=== PATIENT | female | born 1950 | race Caucasian/White ===

== ENCOUNTER → 2020-04-23 09:51 | Outpatient (BNVA) | payer MEDICARE, SELFPAY | PROVIDERS: PCP Family Medicine; Visit Provider Urology | DX: Z13.89 Encounter for screening for other disorder (principal) | CPT/HCPCS: Q3014 ==

== ENCOUNTER → 2020-05-05 09:50 | Outpatient (BNVA) | payer MEDICARE, SELFPAY | PROVIDERS: PCP Family Medicine; Visit Provider Nurse Practitioner | DX: Z13.89 Encounter for screening for other disorder (principal) | CPT/HCPCS: 99212 ==

== ENCOUNTER 2020-06-01 07:57 | Day surgery (SDC) | payer MEDICARE, SELFPAY ==
[2020-06-01 08:41] VITALS: BP 143/70; PULSE 73; RESP 18; TEMP 36.2; O2SAT 98
--- NOTE | 2020-06-01 08:47 | W.PM.OPN ---
Operative Note Operative Note Date of Service: 06/01/20 Narrative: Pre-op diagnosis: Colon cancer screening Post-op diagnosis: other (Colon polyps, diverticulosis) Procedure: COLONOSCOPY TILL CECUM WITH BIOPSIES AND SNARE POLYPECTOMY Consent: Indications for the procedure and potential complications of bleeding, perforation, reaction to medications and missed diagnosis were discussed with the patient and informed consent was obtained. Instrument: Olympus PCF H 190 L variable stiffness pediatric colonoscope Monitoring: Vital signs and clinical assessment, intermittent blood pressure monitoring, continuous EKG monitoring, Pulse oximetry and Carbon Dioxide monitoring were done throughout the procedure. Colon withdrawl time was 19 minutes. Procedure: The patient was placed in the left lateral decubitis position and pre-procedure medications were administered. After a digital rectal examination of the ano-rectum, the video colonoscope was inserted into the rectum and advanced through the colon to the cecum. The colonoscope was slowly withdrawn in a retrograde panoramic fashion and the colon mucosa was carefully examined including a retroflexed view of the rectum. Findings and interventions are described below. Procedure Difficulty: Patient was placed in the supine position to navigate a narrow area in the sigmoid colon at 25 - 30 cms Findings: Terminal Ileum: Not evaluated Cecum: Normal Ascending Colon: A 4-5 mm sessile polyp removed with cold biopsy Transverse Colon: Normal Descending Colon: Moderate diverticulosis Sigmoid Colon: A 10-12 mm sessile polyp removed with a hot snare. A 5-6 mm sessile polyp removed with the cold biopsy. Severe diverticulosis with luminal narrowing at 25-30 cm. Rectum: Normal Ano-rectum: Hypertrophied anal papillae. Colon preparation: Good after copious irrigation Impression and Post Procedure Diagnosis: Colonoscopy Findings: Three small to medium sized polyps removed Moderate to severe diverticulosis seen in the left colon Plan: Await pathology results Patient has an appointment on 06/16/20 in the [facility] with Courtney Reyes NP . Repeat Colonoscopy interval based on path results - in 3-5 years if polyps are adenomatous and 10 years if polyps are hyperplastic. Above findings were reviewed with the patient and colon polyps and diverticulosis handouts were given in the discharge area Surgeon: Johnny Alba MD Anesthesia: MAC (Hanane Ramirez CRNA) Journeyman Mechanic: Jerson Frias Estimated blood loss (mL): 0 Pathology: other (A- ASCENDING COLON POLYP B- SIGMOID COLON POLYPS) Condition: stable Disposition: PACU
--- NOTE | 2020-06-01 08:47 | MHC.SHP ---
Pre-Procedural Eval Section A The patient is an INPATIENT: No Changes since office visit: Yes Patient answered all questions; No Cold of Flu in the past 2 weeks, No New Medical Problems and No Changes in Medication The History & Physical has been completed within 30 days and I have reviewed it.: Yes Section B Chief Complaint: Screening Allergies: Allergies Allergy/AdvReac Type Severity Reaction Status Date / Time No Known Allergies Allergy Mild NKA Unverified 05/05/20 09:40 Exam Surgical H&P Exam: Normal: Heart, Normal: Lungs, Normal: Extremities and Normal: Abdomen Plan Diagnosis/Plan: Unchanged I have reviewed the history and physical and performed a pertinent physical examination on my patient. No changes have occurred unless specified.
[2020-06-01 08:51] VITALS: BMI 40.0
[2020-06-01 08:54] VITALS: BP 143/70; PULSE 73; RESP 18; TEMP 36.2; O2SAT 98
--- NOTE | 2020-06-01 08:56 | P.CONAN_ITS ---
[facility] Active Problems Active Problems: All Active Problems (Updated 05/27/20 @ 14:11 by Kaitlin bosch) Urinary urgency (Acute) Overactive bladder (Acute) GERD (gastroesophageal reflux disease) (Acute) Low magnesium level (Acute) Diarrhea (Acute) Colon cancer screening (Acute) Past Medical History Medical History Abdominal hyperesthesia Asthma COPD (chronic obstructive pulmonary disease) Depression Diabetic neuropathy DM2 (diabetes mellitus, type 2) GERD (gastroesophageal reflux disease) History of kidney stones HTN (hypertension) Hypomagnesemia Iron deficiency anemia secondary to inadequate dietary iron intake Liver mass Osteoarthritis Osteopenia PAD (peripheral artery disease) Scoliosis of thoracolumbar spine Thalamic pain syndrome Urinary incontinence Varicose vein of leg Surgical History Surgical History History of angioplasty of peripheral vessel History of cholecystectomy History of laparoscopic appendectomy Hx of bilateral cataract extraction Hx of section Social History Social History Household Members: Children Alcohol intake: never Smoking Status: Never smoker Use of substances other than those prescribed or required for medical reasons: No Have you been hit, kicked, punched, or otherwise hurt by someone within the past year? If so, by whom?: No Advance Directives: No Advance Directives Information Provided: Yes Current occupational status: disabled Meds Allergies Allergy/AdvReac Type Severity Reaction Status Date / Time No Known Allergies Allergy Mild NKA Unverified 05/05/20 09:40 Home Medications Medication Instructions Recorded Confirmed Last Taken Type acetaminophen 500 mg tablet 0 mg PO 04/23/20 Unknown History aspirin 81 mg tablet,delayed 81 mg PO QAM 04/23/20 05/27/20 Unknown History release atorvastatin 40 mg tablet 40 mg PO BEDTIME 04/23/20 05/27/20 Unknown History blood sugar diagnostic #10 ea 04/23/20 Unknown History carvedilol 12.5 mg tablet 12.5 mg PO DAILY 04/23/20 05/27/20 Unknown History cyanocobalamin (vitamin B-12) 1,000 mcg PO DAILY 04/23/20 05/27/20 Unknown History 1,000 mcg tablet ferrous sulfate 325 mg (65 mg 325 mg PO BID 04/23/20 05/27/20 Unknown History iron) tablet fluticasone propionate 220 1 puff PO BID 04/23/20 05/27/20 Unknown History mcg/actuation HFA aerosol inhaler glipizide 2.5 mg tablet, extended 2.5 mg PO DAILY 04/23/20 05/27/20 Unknown History release 24 hr lancets 33 gauge #100 ea 04/23/20 Unknown History lisinopril 10 mg tablet 10 mg PO QAM 04/23/20 05/27/20 Unknown History magnesium oxide 400 mg (241.3 mg 800 mg PO QID 04/23/20 05/27/20 Unknown History magnesium) tablet memantine 10 mg tablet 10 mg PO BID 04/23/20 05/27/20 Unknown History metformin 850 mg tablet 850 mg PO BID 04/23/20 05/27/20 Unknown History multivitamin 1 tab PO BEDTIME 04/23/20 05/27/20 Unknown History albuterol sulfate 2 puff PO Q4-6H PRN 05/27/20 05/27/20 Unknown History Exam Exam Date and Time: June 01, 2020 0856 Height,Weight and Vital Signs: Height 4 ft 5 in Weight 72.575 kg Last Vital Signs Temp 97.2 F 06/01/20 08:54 Pulse 73 06/01/20 08:54 Resp 18 06/01/20 08:54 BP 143/70 H 06/01/20 08:54 Pulse Ox 98 06/01/20 08:54 Airway Mallampati Class: II (Edentulous) TM Dist: >3cm Neck ROM: Full Denture: Upper and Lower Loose/Missing/Broken Teeth: Yes, Upper and Lower Assessment and Plan Assessment Anesthesia Assessment: Anesthesia Plan Discussed and Chart Reviewed Final Anesthetic Review NPO: Yes ASA Class: III Final Preanesthetic Review: Meds/Allgs Chart Reviewed, Consent Obtained/Reviewed and Anes Risks/Benef Reviewed Patient Risk: Intermediate Procedure Risk: Low Anesthetic Plan Anesthetic Plan: MAC: Disposition: Standard PACU
[2020-06-01 09:04] LABS: Glucose, Whole Blood 105 mg/dL (60-115)
[2020-06-01] MEDS: Lactated Ringers 1,000 ML 50 ML IV (09:12)
[2020-06-01 10:00] VITALS: BP 133/68; PULSE 88; RESP 16; TEMP 36.2; O2SAT 98
[2020-06-01 10:15] VITALS: BP 138/78; PULSE 79; RESP 18; O2SAT 99
== END 2020-06-01 10:50 | disposition home or self-care (01) ==
PROVIDERS: Visit Provider Internal Medicine Gastroenterology
PROC: 0DJD8ZZ Inspection of Lower Intestinal Tract, Via Natural or Artificial Opening Endoscopic (ICD-10-PCS; CPT 45378; principal; 2020-06-01 09:00)
DX: Z12.11 Encounter for screening for malignant neoplasm of colon (principal); D12.5 Benign neoplasm of sigmoid colon; K63.5 Polyp of colon; K57.30 Diverticulosis of large intestine without perforation or abscess without bleeding; K62.89 Other specified diseases of anus and rectum; K21.9 Gastro-esophageal reflux disease without esophagitis; R19.7 Diarrhea, unspecified; D50.9 Iron deficiency anemia, unspecified; R16.0 Hepatomegaly, not elsewhere classified; G89.0 Central pain syndrome; I10 Essential (primary) hypertension; E11.40 Type 2 diabetes mellitus with diabetic neuropathy, unspecified; R79.0 Abnormal level of blood mineral; R32 Unspecified urinary incontinence; Z79.84 Long term (current) use of oral hypoglycemic drugs; Z90.49 Acquired absence of other specified parts of digestive tract; Z79.51 Long term (current) use of inhaled steroids; Z79.82 Long term (current) use of aspirin; Z79.899 Other long term (current) drug therapy; Z87.891 Personal history of nicotine dependence
CPT/HCPCS: 45385; 45380; 82947; 88305

== ENCOUNTER → 2020-06-25 14:37 | Outpatient (BNVA) | payer MEDICARE, SELFPAY | PROVIDERS: Visit Provider Nurse Practitioner | DX: D12.6 Benign neoplasm of colon, unspecified (principal); K21.9 Gastro-esophageal reflux disease without esophagitis; R19.7 Diarrhea, unspecified | CPT/HCPCS: Q3014 ==

== ENCOUNTER 2020-07-15 14:26 | Outpatient (REF) | payer MEDICARE, SELFPAY ==
--- NOTE | ~2020-07-15 | XR_ITS ---
EXAMINATION: XR LUMBOSACRAL SPINE WITH OBLIQUES CLINICAL INFORMATION: Lumbago with sciatica right side. COMPARISON: CT abdomen of 10/22/2018 TECHNIQUE: AP, both oblique, and lateral views of the lumbar spine. Lateral view of the lumbosacral junction. FINDINGS: Normal bowel gas pattern. Numerous calcifications seen overlying the expected locations of the kidneys which may be related to vascular calcifications or medullary calcifications. Prominent calcifications about a nonaneurysmal abdominal aorta. Psoas margins intact. No acute fracture, spondylolisthesis, or spondylolysis is identified. There is sacralization of L5. There is facet arthropathy seen L4 through S1. Disc spaces are maintained other than for the L5-S1 level. No destructive bony lesions appreciated. No significant abnormality of the sacroiliac joints is identified. There is mild scoliosis at the thoracolumbar junction but which may be positional in nature. XR/XR lumbar spine 4V min IMPRESSION: No acute fracture, spondylolisthesis, or spondylolysis of the lumbar spine. Bilateral facet arthropathy L4 through S1. Sacralization of L5.
== END 2020-07-15 14:27 | disposition home or self-care (01) ==
LOC: HO.XRAY 14:26
PROVIDERS: PCP Family Medicine; Visit Provider Family Medicine
DX: M54.41 Lumbago with sciatica, right side (principal)
CPT/HCPCS: 72110

== ENCOUNTER 2020-08-25 12:55 | Outpatient (REF) | payer MEDICARE, SELFPAY ==
--- NOTE | ~2020-08-25 | MM_ITS ---
EXAMINATION: MM SCREENING DIGITAL BREAST TOMOSYNTHESIS, BILATERAL CLINICAL INFORMATION: Screening. Asymptomatic. The lifetime risk of breast cancer based on the Tyrer-Cuzick Model is 3%. COMPARISON: Mammography: 09/26/2018, 09/18/2017, 05/10/2016 TECHNIQUE: Digital breast tomosynthesis is performed in both the craniocaudal and mediolateral oblique views along with computer-aided detection (CAD). Synthesized 2D images are generated from the tomosynthesis. FINDINGS: There are scattered areas of fibroglandular density (ACR BI-RADS breast composition Category b). There are no significant masses, abnormal calcifications, or other abnormalities. The axilla and skin contours are unremarkable. Extensive bilateral vascular calcifications and some scattered benign round calcifications are again noted. MM/MM tomosynthesis screening BI IMPRESSION: No mammographic evidence of malignancy. ASSESSMENT: BI-RADS 1: Negative RECOMMENDATION: Routine annual mammography screening. This patient's information was entered into a reminder system with a target due date for their next mammogram.
== END 2020-08-25 12:56 | disposition home or self-care (01) ==
LOC: HO.MAMMO 12:55
PROVIDERS: Visit Provider Family Medicine
DX: Z12.31 Encounter for screening mammogram for malignant neoplasm of breast (principal)
CPT/HCPCS: 77063; 77067

== ENCOUNTER 2020-10-27 09:35 | Outpatient (REF) | payer MEDICARE, SELFPAY | END 2020-10-27 09:36 | disposition home or self-care (01) | LOC: HO.LAB 09:35 | PROVIDERS: PCP Family Medicine | DX: N32.81 Overactive bladder (principal); R39.15 Urgency of urination | CPT/HCPCS: 51798; 87086; 99212 ==

== ENCOUNTER 2020-10-28 14:58 | Outpatient (REF) | payer MEDICARE, SELFPAY ==
--- NOTE | ~2020-10-28 | MR_ITS ---
EXAMINATION: MR LUMBAR SPINE WITHOUT CONTRAST CLINICAL INFORMATION: Back pain with sciatica. Low back pain radiating into the right leg. Right greater than left leg pain, numbness, toe numbness. Bilateral leg weakness. COMPARISON: Lumbar spine radiographs dated 07/15/2020. TECHNIQUE: MRI of the lumbar spine was obtained using routine sequences without contrast. FINDINGS: VERTEBRAL BODIES AND PARASPINAL STRUCTURES: There is transitional anatomy with sacralization of the L5 vertebral body. Examination is labeled as such on a saved image. The lumbar lordosis is maintained. Minimal grade 1 anterolisthesis of L4 on L5. No acute fracture or subluxation. No loss of vertebral body height. Loss of intervertebral disc height with disc desiccation at L4-L5. No marrow edema to suggest acute osseous injury. The visualized paraspinal soft tissues are unremarkable. CONUS MEDULLARIS AND CAUDA EQUINA: Normal, terminating at the level of the T12-L1 intervertebral disc. SPINAL LEVELS: T12-L1: Minimal disc bulge. No central canal or neural foraminal stenosis. L1-L2: Minimal disc bulge. No central canal or neural foraminal stenosis. Bilateral facet arthropathy. L2-L3: No significant disc bulge. No central canal or neural foraminal stenosis. Bilateral facet arthropathy. L3-L4: Mild broad-based disc bulge with a superimposed right subarticular disc protrusion which abuts the exiting right L3 nerve root. Bilateral facet arthropathy and thickening of the ligamentum flavum causing mild central canal stenosis which encroaches upon the traversing bilateral L4 nerve roots within the lateral recesses. Moderate right and mild left neural foraminal stenosis. L4-L5: Broad-based disc bulge with a shallow posterior central disc protrusion. Bilateral facet arthropathy and thickening of the ligamentum flavum causing mild central canal stenosis and encroaching upon the traversing bilateral L5 nerve roots within the lateral recesses. Mild bilateral neural foraminal stenosis, left greater than right. L5-S1: No significant disc bulge. No central canal or neural foraminal stenosis. MR/MR lumbar spine wo con IMPRESSION: 1. Transitional anatomy with sacralization of the L5 vertebral body. 2. Mild broad-based disc bulge at L3-L4 with a right subarticular disc protrusion which abuts the exiting right L3 nerve root. Bilateral facet arthropathy and thickening of the ligamentum flavum causing mild central canal stenosis and encroaching upon the traversing bilateral L4 nerve roots. Mild right and mild left neural foraminal stenosis. 3. Grade 1 anterolisthesis of L4 on L5 with a broad-based disc bulge and shallow posterior central disc protrusion. In combination with bilateral facet arthropathy and thickening of the ligamentum flavum, this causes mild central canal stenosis and encroaches upon the traversing bilateral L5 nerve roots. Additionally, this causes mild bilateral neural foraminal stenosis, left greater than right.
== END 2020-10-28 14:59 | disposition home or self-care (01) ==
LOC: HO.MRI 14:58
PROVIDERS: PCP Family Medicine; Visit Provider Family Medicine
DX: M54.40 Lumbago with sciatica, unspecified side (principal)
CPT/HCPCS: 72148

== ENCOUNTER → 2020-11-26 12:58 | Outpatient (BNVA) | payer MEDICARE, SELFPAY | DX: R39.15 Urgency of urination (principal); N32.81 Overactive bladder | CPT/HCPCS: Q3014 ==

== ENCOUNTER 2021-01-14 11:59 | Day surgery (SDC) | payer MEDICARE, SELFPAY ==
--- NOTE | 2021-01-13 10:09 | HO.ANESPROP2 ---
Documented by User: Hiral Moon NP 01/13/21 10:16 HPI - Anesthesia Eval Consult details Narrative: 70yo F for Bone Marrow Biopsy s/p colonoscopy 05/2020 with [facility] Active Problems Active Problems: All Active Problems (Updated 01/10/21 @ 11:03 by Kaitlin Mathew, CHANDU) Urinary urgency (Acute) Overactive bladder (Acute) GERD (gastroesophageal reflux disease) (Acute) Low magnesium level (Acute) Diarrhea (Acute) Colon cancer screening (Acute) Tubular adenoma of colon (Acute) Anemia (Chronic) Past Medical History Medical History Abdominal hyperesthesia Anemia Asthma Chronic renal insufficiency COPD (chronic obstructive pulmonary disease) Depression Diabetic neuropathy DM2 (diabetes mellitus, type 2) GERD (gastroesophageal reflux disease) History of kidney stones HTN (hypertension) Hypomagnesemia Iron deficiency anemia secondary to inadequate dietary iron intake Liver mass Osteoarthritis Osteopenia PAD (peripheral artery disease) Scoliosis of thoracolumbar spine Thalamic pain syndrome Urinary incontinence Varicose vein of leg Family History Family History Daughter Diabetes Brother Heart problem Mother Heart problem Father Asthma Surgical History Surgical History History of angioplasty of peripheral vessel History of cholecystectomy History of laparoscopic appendectomy Hx of bilateral cataract extraction Hx of section Hx of colonoscopy Social History Social History Household Members: Children Alcohol intake: former Patient Tobacco Use Status: Never used Tobacco Use of substances other than those prescribed or required for medical reasons: No Are you DNR?: No Advance Directives: No Advance Directives Information Provided: No Recently lost weight without trying: Yes How much weight loss: 2-13 pounds Nutrition Risks: No Nutritional Risk Current occupational status: disabled Meds Allergies Allergy/AdvReac Type Severity Reaction Status Date / Time No Known Allergies Allergy Mild NKA Verified 01/10/21 10:55 Home Medications Medication Instructions Recorded Confirmed Last Taken Type acetaminophen 500 mg tablet 500 mg PO DAILY 04/23/20 01/10/21 Unknown History aspirin 81 mg tablet,delayed 81 mg PO QAM 04/23/20 01/10/21 Unknown History release atorvastatin 40 mg tablet 40 mg PO BEDTIME 04/23/20 01/10/21 Unknown History blood sugar diagnostic #10 ea 04/23/20 12/28/20 Unknown History carvedilol 12.5 mg tablet 18.75 mg PO BID 04/23/20 01/10/21 Unknown History cyanocobalamin (vitamin B-12) 1,000 mcg PO DAILY 04/23/20 01/10/21 Unknown History 1,000 mcg tablet fluticasone propionate 220 1 puff PO BID 04/23/20 01/10/21 Unknown History mcg/actuation HFA aerosol inhaler lancets 33 gauge #100 ea 04/23/20 12/28/20 Unknown History lisinopril 10 mg tablet 10 mg PO QAM 04/23/20 01/10/21 Unknown History magnesium oxide 400 mg (241.3 mg 800 mg PO QID 04/23/20 01/10/21 Unknown History magnesium) tablet memantine 10 mg tablet 10 mg PO BID 04/23/20 01/10/21 Unknown History metformin 850 mg tablet 850 mg PO BID 04/23/20 01/10/21 Unknown History multivitamin 1 tab PO BEDTIME 04/23/20 01/10/21 Unknown History albuterol sulfate 90 mcg/actuation 2 puff PO Q4-6H PRN 05/27/20 01/10/21 Unknown History aerosol inhaler ferrous gluconate 324 mg (38 mg 1 tab PO BID 12/28/20 01/10/21 Unknown History iron) tablet glipizide 5 mg tablet, extended 1 tab PO QAM 12/28/20 01/10/21 Unknown History release 24 hr magnesium chloride 71.5 mg 1 tab PO BID 12/28/20 01/10/21 Unknown History (magnesium chloride) tablet,delayed release (Slow-Mag) Exam Exam Date and Time: January 13, 2021 1009 Pertinent Lab Results Pertinent Lab Results: Laboratory Tests 12/28/20 12/28/20 14:11 14:16 WBC 4.8 Hgb 9.5 L Hct 29.9 L Plt Count 223 Sodium 139 Potassium 5.5 H Chloride 110 H Carbon Dioxide 22 BUN 25 H Creatinine 1.39 Assessment and Plan Assessment Anesthesia Assessment: Chart Reviewed Documented by User: Modesta Javier MD 01/14/21 15:29 [facility] Past Medical History Medical History Abdominal hyperesthesia Anemia Asthma Chronic renal insufficiency COPD (chronic obstructive pulmonary disease) Depression Diabetic neuropathy DM2 (diabetes mellitus, type 2) GERD (gastroesophageal reflux disease) History of kidney stones HTN (hypertension) Hypomagnesemia Iron deficiency anemia secondary to inadequate dietary iron intake Liver mass Osteoarthritis Osteopenia PAD (peripheral artery disease) Scoliosis of thoracolumbar spine Thalamic pain syndrome Urinary incontinence Varicose vein of leg Family History Family History Daughter Diabetes Brother Heart problem Mother Heart problem Father Asthma Family history of problems with anesthesia: No Surgical History Surgical History History of angioplasty of peripheral vessel History of cholecystectomy History of laparoscopic appendectomy Hx of bilateral cataract extraction Hx of section Hx of colonoscopy History of Problems with Anesthesia: No Social History Social History Household Members: Children Alcohol intake: former Patient Tobacco Use Status: Never used Tobacco Use of substances other than those prescribed or required for medical reasons: No Are you DNR?: No Advance Directives: No Advance Directives Information Provided: No Recently lost weight without trying: Yes How much weight loss: 2-13 pounds Nutrition Risks: No Nutritional Risk Current occupational status: disabled Meds Allergies Allergy/AdvReac Type Severity Reaction Status Date / Time No Known Allergies Allergy Mild NKA Verified 01/10/21 10:55 Home Medications Medication Instructions Recorded Confirmed Last Taken Type acetaminophen 500 mg tablet 500 mg PO DAILY 04/23/20 01/10/21 Unknown History aspirin 81 mg tablet,delayed 81 mg PO QAM 04/23/20 01/10/21 Unknown History release atorvastatin 40 mg tablet 40 mg PO BEDTIME 04/23/20 01/10/21 Unknown History blood sugar diagnostic #10 ea 04/23/20 12/28/20 Unknown History carvedilol 12.5 mg tablet 18.75 mg PO BID 04/23/20 01/10/21 Unknown History cyanocobalamin (vitamin B-12) 1,000 mcg PO DAILY 04/23/20 01/10/21 Unknown History 1,000 mcg tablet fluticasone propionate 220 1 puff PO BID 04/23/20 01/10/21 Unknown History mcg/actuation HFA aerosol inhaler lancets 33 gauge #100 ea 04/23/20 12/28/20 Unknown History lisinopril 10 mg tablet 10 mg PO QAM 04/23/20 01/10/21 Unknown History magnesium oxide 400 mg (241.3 mg 800 mg PO QID 04/23/20 01/10/21 Unknown History magnesium) tablet memantine 10 mg tablet 10 mg PO BID 04/23/20 01/10/21 Unknown History metformin 850 mg tablet 850 mg PO BID 04/23/20 01/10/21 Unknown History multivitamin 1 tab PO BEDTIME 04/23/20 01/10/21 Unknown History albuterol sulfate 90 mcg/actuation 2 puff PO Q4-6H PRN 05/27/20 01/10/21 Unknown History aerosol inhaler ferrous gluconate 324 mg (38 mg 1 tab PO BID 12/28/20 01/10/21 Unknown History iron) tablet glipizide 5 mg tablet, extended 1 tab PO QAM 12/28/20 01/10/21 Unknown History release 24 hr magnesium chloride 71.5 mg 1 tab PO BID 12/28/20 01/10/21 Unknown History (magnesium chloride) tablet,delayed release (Slow-Mag) Exam Height,Weight and Vital Signs: Height 4 ft 8 in Weight 71.668 kg Vital Signs Temp Pulse Resp BP Pulse Ox 98.2 F 67 16 147/65 H 99 01/14/21 13:11 01/14/21 13:11 01/14/21 13:11 01/14/21 13:11 01/14/21 13:11 Airway Mallampati Class: II TM Dist: >3cm Neck ROM: Full Denture: Upper and Lower Heart: RRR Lungs: CTAB Assessment and Plan Assessment Anesthesia Assessment: Anesthesia Plan Discussed Final Anesthetic Review Family History of Problems with Anesthesia: No History of Problems with Anesthesia: No NPO: Yes ASA Class: III Final Preanesthetic Review: No Changes in Pt Med Stat, Meds/Allgs Chart Reviewed, Consent Obtained/Reviewed and Anes Risks/Benef Reviewed Patient Risk: Intermediate Procedure Risk: Low Assessment/Block/Sedation in SS: Assess/Block/Sedation-SS Anesthetic Plan Anesthetic Plan: MAC: Disposition: Standard PACU
[2021-01-14 12:56] VITALS: BMI 35.4
[2021-01-14 13:11] VITALS: BP 147/65; PULSE 67; RESP 16; TEMP 36.8; O2SAT 99
[2021-01-14 13:12] LABS: MANUAL DIFF FLAG NO
[2021-01-14 13:15] LABS: Basophils Percent Auto 0.7 % (0-2); Eosinophils Absolute Auto 0.1 X10*3/uL (0.0-0.4); Eosinophils Percent Auto 1.6 % (0-4); Hematocrit 31.8 % (37.0-47.0); Hemoglobin 9.7 g/dl (12.0-16.0); Imm Gran Abs Auto 0.01 X10*3/uL (0.00-0.03); Imm Gran Pct Auto 0.2 % (0.0-0.4); Lymphocytes Percent Auto 36.1 % (20-40); Mean Corpuscular HGB Conc 30.5 g/dl (31.0-35.0); Mean Corpuscular Hemoglobin 26.8 pg (27.0-33.0); Mean Corpuscular Volume 87.8 fL (80.0-98.0); Mean Platelet Volume 10.3 fL (9.4-12.3); Monocytes Absolute Auto 0.5 X10*3/uL (0.1-1.2); Monocytes Percent Auto 8.7 % (2-11); Neutrophils Absolute Auto 2.9 x10*3/uL (2.0-8.3); Neutrophils Percent Auto 52.7 % (45-73); Platelet Count 215 X10*3/uL (160-400); Red Blood Count 3.62 X10*6/uL (4.20-5.50); Red Cell Distribution Width 15.3 % (11.0-16.0); White Blood Count 5.5 X10*3/uL (4.8-10.8)
[2021-01-14 13:19] LABS: Glucose, Whole Blood 123 mg/dL (60-115)
[2021-01-14] MEDS: Lactated Ringers 1,000 ML 50 ML IVCONT (13:27)
[2021-01-14 15:16] VITALS: BP 92/28; PULSE 82; RESP 16; TEMP 36.9; O2SAT 97
[2021-01-14 15:23] LABS: Bone Marrow SEE SEPARATE REPORT
[2021-01-14 15:31] VITALS: BP 108/64; PULSE 72; RESP 16; O2SAT 98
[2021-01-14 15:46] VITALS: BP 96/77; PULSE 71; RESP 16; O2SAT 97
[2021-01-14] MEDS: Acetaminophen 325 MG TABLET 650 MG PO (15:46)
--- NOTE | 2021-01-14 15:47 | PM.HEMONCBM ---
Bone Marrow Aspiration - Bone Marrow Aspiration Procedure:: *Service Date: [01/14/21] Pre Op Diagnosis:: Anemia rule out MDS Post Op Diagnosis:: Same Surgeon:: Clarissa Amaral MD Anesthesia:: Mac and local anesthesia Consent:: Informed consent obtained from the patient for the procedure. Pros and cons of biopsy explained. The patient was willing to proceed with the procedure under monitored anesthesia. Procedure in Detail:: *Service Date: [_ Current Date] *Procedure: [Diagnostic bone marrow aspiration and biopsy *Pre Op Dx: [Anemia, rule out MDS *Post Op Dx: [Same *Surgeon: [Clarissa Amaral MD The patient was positioned in the left lateral decubitus and the right posterior superior iliac spine prepped and draped. Under aseptic precautions, 10 mL ml of 1%lidocaine used for local anesthesia. With the Jamshidi needle, 10 mL of aspirate and 2 cm core biopsy obtained without any complications. The patient tolerated the procedure well. Bandage was applied and patient was positioned on back for 10 to 15 minutes after the procedure. The patient was advised to call us if she develops any pain or swelling at the surgical site. Follow up in 2 weeks.
[2021-01-14 16:01] VITALS: BP 139/97; PULSE 75; RESP 18; TEMP 36.8; O2SAT 99
== END 2021-01-14 16:39 | disposition home or self-care (01) ==
PROVIDERS: PCP Family Medicine; Visit Provider Internal Medicine
PROC: (CPT 38221; principal; 2021-01-14 14:00)
DX: D64.9 Anemia, unspecified (principal); E11.40 Type 2 diabetes mellitus with diabetic neuropathy, unspecified; E11.22 Type 2 diabetes mellitus with diabetic chronic kidney disease; I12.9 Hypertensive chronic kidney disease with stage 1 through stage 4 chronic kidney disease, or unspecified chronic kidney disease; N18.9 Chronic kidney disease, unspecified; Z79.84 Long term (current) use of oral hypoglycemic drugs; G89.0 Central pain syndrome; J44.9 Chronic obstructive pulmonary disease, unspecified; Z79.51 Long term (current) use of inhaled steroids; Z79.82 Long term (current) use of aspirin; Z79.899 Other long term (current) drug therapy
CPT/HCPCS: 38222; 36415; 82947; 85025; 85097; 88184; 88185; 88237; 88264; 88305; 88311; 88313; J1642

== ENCOUNTER → 2021-01-17 11:54 | Outpatient (BNVA) | payer MEDICARE, SELFPAY | PROVIDERS: PCP Family Medicine; Referring Provider Family Medicine; Visit Provider Nurse Practitioner | DX: K21.9 Gastro-esophageal reflux disease without esophagitis (principal); D12.6 Benign neoplasm of colon, unspecified; R19.7 Diarrhea, unspecified | CPT/HCPCS: 99212 ==

== ENCOUNTER → 2021-05-27 12:54 | Outpatient (BNVA) | payer MEDICARE, SELFPAY | PROVIDERS: PCP Family Medicine | DX: R39.15 Urgency of urination (principal); N32.81 Overactive bladder | CPT/HCPCS: 99212 ==

== ENCOUNTER → 2021-08-23 14:12 | Outpatient (BNVA) | payer OTHER, SELFPAY | PROVIDERS: PCP Family Medicine; Visit Provider Nurse Practitioner | DX: K21.9 Gastro-esophageal reflux disease without esophagitis (principal); R19.7 Diarrhea, unspecified | CPT/HCPCS: 99212 ==

== ENCOUNTER → 2022-02-02 13:29 | Outpatient (BNVA) | payer OTHER, SELFPAY | PROVIDERS: PCP Family Medicine; Visit Provider Nurse Practitioner Family | DX: R39.15 Urgency of urination (principal); N32.81 Overactive bladder | CPT/HCPCS: Q3014 ==

== ENCOUNTER → 2022-03-07 14:50 | Outpatient (BNVA) | payer OTHER, SELFPAY | PROVIDERS: PCP Family Medicine; Visit Provider Nurse Practitioner | DX: K21.9 Gastro-esophageal reflux disease without esophagitis (principal); R19.7 Diarrhea, unspecified; Z86.010 Personal history of colon polyps | CPT/HCPCS: 99212 ==

== ENCOUNTER 2022-04-20 13:31 | Outpatient (REF) | payer OTHER, SELFPAY ==
--- NOTE | ~2022-04-20 | MM_ITS ---
EXAMINATION: MM SCREENING DIGITAL BREAST TOMOSYNTHESIS, BILATERAL CLINICAL INFORMATION: Screening. Asymptomatic. The lifetime risk of breast cancer based on the Tyrer-Cuzick Model is 2%. COMPARISON: Mammography: August 25, 2020 and studies dating back to March 03, 2015 TECHNIQUE: Digital breast tomosynthesis is performed in both the craniocaudal and mediolateral oblique views along with computer-aided detection (CAD). Synthesized 2D images are generated from the tomosynthesis. FINDINGS: There are scattered areas of fibroglandular density (ACR BI-RADS breast composition Category b). There are no significant masses, abnormal calcifications, or other abnormalities. MM/MM tomosynthesis screening BI IMPRESSION: No significant changes ASSESSMENT: BI-RADS 1: Negative RECOMMENDATION: Routine annual mammography screening. This patient's information was entered into a reminder system with a target due date for their next mammogram.
== END 2022-04-20 13:32 | disposition home or self-care (01) ==
LOC: HO.MAMMO 13:31
PROVIDERS: PCP Family Medicine; Visit Provider Family Medicine
DX: Z12.31 Encounter for screening mammogram for malignant neoplasm of breast (principal)
CPT/HCPCS: 77063; 77067

== ENCOUNTER → 2022-08-03 13:41 | Outpatient (BNVA) | payer OTHER, SELFPAY | PROVIDERS: Visit Provider Nurse Practitioner Family | DX: R39.15 Urgency of urination (principal); N32.81 Overactive bladder | CPT/HCPCS: 51798; 99212 ==

== ENCOUNTER 2022-09-19 13:05 | Outpatient (AMB) | payer OTHER, SELFPAY ==
--- NOTE | 2022-09-19 13:07 | A.OFFVIS_ITS ---
Intake Vital Signs 09/19/22 13:09 Height 4 ft 3 in Weight 150 lb 5.684 oz BMI 40.6 BP 129/58 L Blood Pressure Location Lt brachial Position Sitting Pulse 68 Intake Visit Reasons: 6month f/u GERD Intake Note: Ayleen presents in the office today in 6 months follow up of GERD. CC: Patient c/o acid reflux, heartburn, and dryness from mouth and esophagus. Denies other GI symptoms today Certified Medical Asst Required: Yes Allergies No Known Allergies Allergy (Mild, Verified 09/19/22 13:12) NKA HPI 6month f/u GERD HPI Details Assessment & Plan (1) GERD (gastroesophageal reflux disease): ?Code(s): K21.9 - Gastro-esophageal reflux disease without esophagitis ?Plan: [place] #Laverne Live She continues to do well on her carafate and her famotidine, with some intermittent abdominal pain on the sides, She can not give me a good idea of how often this happens, but it happens when she lays down to watch her Soap Opera, about 15-20 mint after eating. I think she needs to take a walk or wait longer after eating before laying down. We will watch and wait on this sx. She is no longer taking the carafate, but also not having diarrhea. She ran out of the famotidine, but someone d/c'd it from? her medications list and this may be the problem. I will reinstate it at 20mg bid. ROV 6 mos. (2) Diarrhea: ?Code(s): R19.7 - Diarrhea, unspecified (3) Tubular adenoma of colon: ?Comment: 05/2020 SCOPE GREATER THAN 10 MM SESSILE REPEAT IN 3 YEARS ?Code(s): D12.6 - Benign neoplasm of colon, unspecified ? ? ? Medications: New famotidine (Pepcid ) 20 mg? PO BID 60 t abs 6RF K21.9 - Gastro-eso phageal reflux dis ease without esoph agitis ? TODAY'S VISIT [place] Yazmin Live HER dtr is with her and is supportive. She has been having burning in her chest and across her ribs, despite taking famotidine 20mg bid. We had stopped her carafate as she was no longer having diarrhea. Since she has a hx of diarrhea, I want to skip omeprazole and go to protonix 40mg qam and she can take both of her famotidine qhs. She continues on fiber, but admits she has been forgetting to take it I have so many medications. She has not had diarrhea, and is c/o dry mouth but this is likely her Myrbertec and namenda. She is c/o gas, likely r/t CIC and she is again encouraged to take her fiber. ROV 6 weeks. [facility] Medical History Abdominal hyperesthesia Anemia Asthma Chronic renal insufficiency COPD (chronic obstructive pulmonary disease) Depression Diabetic neuropathy DM2 (diabetes mellitus, type 2) GERD (gastroesophageal reflux disease) History of kidney stones HTN (hypertension) Hypomagnesemia Iron deficiency anemia secondary to inadequate dietary iron intake Liver mass Osteoarthritis Osteopenia PAD (peripheral artery disease) Scoliosis of thoracolumbar spine Thalamic pain syndrome Urinary incontinence Varicose vein of leg Surgical History History of angioplasty of peripheral vessel History of cholecystectomy History of laparoscopic appendectomy Hx of bilateral cataract extraction Hx of section Hx of colonoscopy Family History Daughter Diabetes Brother Heart problem Mother Heart problem Father Asthma Other No family history of cancer Social History Household Members: Children Housing: Apartment Are you a primary personal care service provider to a significant other at home: No Do you presently have visiting nurse or other home services: No Alcohol intake: former Patient Tobacco Use Status: Never used Tobacco service: No Current occupational status: disabled Review of Systems Const Denies fatigue, Denies fever(s), Denies night sweats, Denies poor appetite, Denies weight gain and Denies weight loss ENT Reports Normal hearing present, Denies dental pain, Denies dysphagia, Reports dry mouth, Denies hearing loss, Denies mouth pain, Denies odynophagia, Denies throat swelling, Denies tongue swelling and Reports other (Dentition adequate) Card Reports no additional complaints and Reports dyspnea on exertion Resp Reports dyspnea on exertion GI Denies abdominal pain, Denies melena, Denies bloating, Denies hematochezia, Reports constipation, Denies GI cramping, Denies dysphagia, Denies excessive fla tus, Denies early satiety, Reports heartburn, Denies diarrhea, Denies nausea, Denies odynophagia, Denies vomiting and Denies hematemesis Reports urinary urgency Skin/Breast Denies pruritus, Denies lesions, Denies rash and Denies jaundice Neuro Reports Normal hearing present, Denies Abnormal speech present and Reports mem ory loss Psych Reports memory loss Endo Denies fatigue Aller/Immun Denies throat swelling and Denies tongue swelling Physical Exam Vital Signs: Last Vital Signs Pulse 68 09/19/22 13:09 BP 129/58 L 09/19/22 13:09 BMI result Body Mass Index 40.6 Const General: cooperative, no acute distress, well developed and well groomed Nutritional Appearance: well nourished and obese Orientation/consciousness: oriented to person, oriented to place and oriented to time Limitations: language barrier HEENT Head: Yes normocephalic and Yes atraumatic Eyes General: appearance normal, both eyes and all related structures Pupils: Equal, round and reactive pupils present Neck Neck: Yes normal visual inspection and Yes no lymphadenopathy Thyroid: Thyroid normal Resp Effort & Inspection: normal respiratory effort and able to speak in complete sentences Auscultation: clear to auscultation bilaterally Cardio Rate: regular rate Rhythm: regular rhythm Heart sounds: Normal, physiologic split S2 sound present Peripheral pulses: radial pulses present and posterior tibial pulses present GI Inspection: No distended, Yes Abdominal panniculus present and Yes obesity Palpation (GI): Soft to palpation, nontender, no guarding, not rigid and No hepatosplenomegaly present Percussion: Yes normal to percussion Auscultation: normal bowel sounds Rectal Exam - Female: deferred Skin General skin exam: no rashes or lesions noted, turgor normal, skin not dry, no jaundice, No spider nevi and no striae Rashes: no rashes Nails: normal Neuro General: oriented to person, oriented to place and oriented to time Cranial nerves: Yes Equal, round and reactive pupils present and Yes Normal hearing present Speech: No Abnormal speech present Extrem General: Yes normal to inspection, No clubbing, No cyanosis and No edema Psych Appearance: grossly normal and well kempt Mental Status: mental status grossly normal Speech and movement: Normal speech and movement present Affect: normal affect Attitude: cooperative Thought process: Normal thought process present and not confabulating Thought content: Normal thought content present Insight: Limited insight present (Psych) Judgement: Limited judgement present (Psych) Assessment & Plan Assessment & Plan (1) GERD (gastroesophageal reflux disease): Code(s): K21.9 - Gastro-esophageal reflux disease without esophagitis Plan: [place] #Aneclmo Live HER dtr is with her and is supportive. She has been having burning in her chest and across her ribs, despite taking famotidine 20mg bid. We had stopped her carafate as she was no longer having diarrhea. Since she has a hx of diarrhea, I want to skip omeprazole and go to protonix 40mg qam and she can take both of her famotidine qhs. She continues on fiber, but admits she has been forgetting to take it I have so many medications. She has not had diarrhea, and is c/o dry mouth but this is likely her Myrbertec and namenda. She is c/o gas, likely r/t CIC and she is again encouraged to take her fiber. ROV 6 weeks. (2) Diarrhea: Code(s): R19.7 - Diarrhea, unspecified (3) Tubular adenoma of colon: Comment: 05/2020 SCOPE GREATER THAN 10 MM SESSILE REPEAT IN 3 YEARS Code(s): D12.6 - Benign neoplasm of colon, unspecified Medications: New pantoprazole (Protonix) 40 mg PO DAILY 30 tabs 6RF 30 days K21.9 - Gastro- esophageal reflux disease without esophagitis Changed From methylcellulose (laxative) 1,000 mg (2 x 500 mg) PO BID 120 tabs 1RF R19.7 - Diarrhea, unspecified To methylcellulose (laxative) (Fiber Laxative (methylcellulose)) 1,000 mg (2 x 500 mg) PO BID 120 tabs 1RF R19.7 - Diarrhea, unspecified Coding Level of Care Code Est Pt Level 3 (46923) Diagnoses GERD (gastroesophageal reflux disease) K21.9 Diarrhea R19.7 Tubular adenoma of colon D12.6
[2022-09-19 13:09] VITALS: BP 129/58; PULSE 68; BMI 40.6
== END 2022-09-19 13:45 | disposition home or self-care (01) ==
PROVIDERS: Visit Provider Nurse Practitioner
DX: K21.9 Gastro-esophageal reflux disease without esophagitis (principal); R19.7 Diarrhea, unspecified; D12.6 Benign neoplasm of colon, unspecified
CPT/HCPCS: 99213

== ENCOUNTER → 2022-09-19 13:05 | Outpatient (BNVA) | payer OTHER, SELFPAY | PROVIDERS: Visit Provider Nurse Practitioner | DX: K21.9 Gastro-esophageal reflux disease without esophagitis (principal); R19.7 Diarrhea, unspecified; Z86.010 Personal history of colon polyps | CPT/HCPCS: 99212 ==

== ENCOUNTER 2022-10-31 12:48 | Outpatient (AMB) | payer OTHER, SELFPAY ==
--- NOTE | 2022-10-31 12:50 | A.OFFVIS_ITS ---
Intake Vital Signs 3 10/31/22 13:00 Height 4 ft 3 in Weight 145 lb 8.081 oz BMI 39.3 BP 132/71 Blood Pressure Location Lt brachial Position Sitting Pulse 69 Intake Visit Reasons: 6 Week fu Intake Note: Ayleen presents in the office as a 6 week follow up. CC: She states that she is not having any concerns today. Saw Superintendent Required: Yes Saw Superintendent Name: [id number] Allergies No Known Allergies Allergy (Mild, Verified 10/31/22 13:01) NKA HPI 6 Week fu 2 HPI0 Details Assessment & Plan (1) GERD (gastroesophageal reflux diseas e): Code(s): K21.9 - Gastro-esophageal reflux disease without esophagitis Plan: [place] #Ancelmo Live HER dtr is with her and is supportive. She has been having burning in her chest and across her ribs, despite taking famotidine 20mg bid. We had stopped her carafate as she was no longer having diarrhea. Since she has a hx of diarrhea, I want to skip omeprazole and go to protonix 40mg qam and she can take both of her famotidine qhs. She continues on fiber, but admits she has been forgetting to take it I have so many medications. She has not had diarrhea, and is c/o dry mouth but this is likely her Myrbertec and namenda. She is c/o gas, likely r/t CIC and she is again encouraged to take her fiber. ROV 6 weeks. (2) Diarrhea: Code(s): R19.7 - Diarrhea, unspecified (3) Tubular adenoma of colon: Comment: 05/2020 SCOPE GREATER THAN 10 MM SESSILE REPEAT IN 3 YEARS Code(s): D12.6 - Benign neoplasm of colon, unspecified Medications: New pantoprazole (Prot nallely) 40 mg PO DAILY 30 tabs 6RF 30 days K21.9 - Gastro-eso phageal reflux dis ease without esoph agitis Changed From methylcellulose (l axative) 1,000 mg (2 x 500 mg) PO BID 120 tab s 1RF R19.7 - Diarrhea, unspecified To methylcellulose (l axative) (Fiber La xative (methylcell ulose)) 1,000 mg (2 x 500 mg) PO BID 120 tab s 1RF R19.7 - Diarrhea, unspecified TODAY'S VISIT [place] #Hari Roldan The burning in her chest has resolved with the pantoprazole and she is now happy with her GI regimen. She also has famotidine for breakthrough available. She is continuing with her fiber therapy and she feels this is controlling her diarrhea well. She is due for repeat colonoscopy related to her history of a very large tubular adenoma in 2020. She is agreeing to have a this ordered today as it likely will be scheduled until 2023. He says that her asthma COPD her cardiac disease are well controlled. There are no prior problems with anesthesia or sedation. There are no infectious problems. I will see her in 6 months for her regular care and of course after her colonoscopy.. She is going to be going to refresh her labs today. COUNTS INCLUDE 234 BEDS AT THE [facility] Medical History Chronic renal insufficiency Anemia Abdominal hyperesthesia Diabetic neuropathy Osteoarthritis Depression History of kidney stones Scoliosis of thoracolumbar spine Varicose vein of leg GERD (gastroesophageal reflux disease) Osteopenia COPD (chronic obstructive pulmonary disease) Asthma Hypomagnesemia DM2 (diabetes mellitus, type 2) HTN (hypertension) PAD (peripheral artery disease) Urinary incontinence Thalamic pain syndrome Liver mass Iron deficiency anemia secondary to inadequate dietary iron intake Surgical History Hx of colonoscopy History of angioplasty of peripheral vessel History of laparoscopic appendectomy Hx of section Hx of bilateral cataract extraction History of cholecystectomy Family History Daughter Diabetes Brother Heart problem Mother Heart problem Father Asthma Other No family history of cancer Social History Household Members: Children Housing: Apartment Are you a primary infant childcare provider to a significant other at home: No Do you presently have visiting nurse or other home services: No Alcohol intake: former Patient Tobacco Use Status: Never used Tobacco service: No Current occupational status: disabled Review of Systems Const Denies fatigue, Denies fever(s), Denies night sweats, Denies poor appetite and Denies weight loss ENT Reports Normal hearing present, Denies dental pain, Denies dysphagia, Denies hearing loss, Denies mouth pain, Denies odynophagia, Denies throat swelling, Denies tongue swelling and Reports other (Dentition adequate) Card Reports no additional complaints Resp Reports no additional complaints GI Denies abdominal pain, Denies melena, Denies bloating, Denies hematochezia, Denies constipation, Denies GI cramping, Denies dysphagia, Denies excessive flatus, Denies early satiety, Reports heartburn, Reports diarrhea, Denies nausea, Denies odynophagia, Denies vomiting and Denies hematemesis Skin/Breast Denies pruritus, Denies lesions, Denies rash and Denies jaundice Neuro Reports Normal hearing present and Denies Abnormal speech present Endo Denies fatigue Aller/Immun Denies throat swelling and Denies tongue swelling Physical Exam Vital Signs: Last Vital Signs Pulse 69 10/31/22 13:00 BP 132/71 10/31/22 13:00 BMI result Body Mass Index 39.3 Const General: cooperative, no acute distress, well developed and well groomed Nutritional Appearance: well nourished and obese Orientation/consciousness: oriented to person, oriented to place and oriented to time Limitations: language barrier HEENT Head: Yes normocephalic and Yes atraumatic Eyes General: appearance normal, both eyes and all related structures Pupils: Equal, round and reactive pupils present Neck Neck: Yes normal visual inspection and Yes no lymphadenopathy Thyroid: Thyroid normal Resp Effort & Inspection: normal respiratory effort and able to speak in complete sentences Auscultation: clear to auscultation bilaterally Cardio Rate: regular rate Rhythm: regular rhythm Heart sounds: Normal, physiologic split S2 sound present Peripheral pulses: radial pulses present and posterior tibial pulses present GI Inspection: No distended, Yes Abdominal panniculus present, Yes obesity, Yes scar and Yes striae Palpation (GI): Soft to palpation, nontender, no guarding, not rigid and No hepatosplenomegaly present Percussion: Yes normal to percussion Auscultation: normal bowel sounds Rectal Exam - Female: deferred Abdomen image: 2 1. Surgical scar Skin General skin exam: no rashes or lesions noted, turgor normal, skin not dry, no jaundice, No spider nevi and no striae Rashes: no rashes Nails: normal Neuro General: oriented to person, oriented to place and oriented to time Cranial nerves: Yes Equal, round and reactive pupils present and Yes Normal hearing present Speech: No Abnormal speech present Extrem General: Yes normal to inspection, No clubbing, No cyanosis and No edema Psych Appearance: grossly normal and well kempt Mental Status: mental status grossly normal Speech and movement: Normal speech and movement present Affect: normal affect Attitude: cooperative Thought process: Normal thought process present and not confabulating Thought content: Normal thought content present Insight: Fair insight present (Psych) Judgement: Fair judgement present (Psych) Assessment & Plan Assessment & Plan (1) GERD (gastroesophageal reflux disease): Code(s): K21.9 - Gastro-esophageal reflux disease without esophagitis Plan: [place] #Hari Roldan The burning in her chest has resolved with the pantoprazole and she is now happy with her GI regimen. She also has famotidine for breakthrough available. She is continuing with her fiber therapy and she feels this is controlling her diarrhea well. She is due for repeat colonoscopy related to her history of a very large tubular adenoma in 2020. She is agreeing to have a this ordered today as it likely will be scheduled until 2023. He says that her asthma COPD her cardiac disease are well controlled. There are no prior problems with anesthesia or sedation. There are no infectious problems. I will see her in 6 months for her regular care and of course after her colonoscopy.. She is going to be going to refresh her labs today. (2) Diarrhea: Code(s): R19.7 - Diarrhea, unspecified (3) Tubular adenoma of colon: Comment: 05/2020 SCOPE GREATER THAN 10 MM SESSILE REPEAT IN 3 YEARS Code(s): D12.6 - Benign neoplasm of colon, unspecified (4) Pre-op examination: Code(s): Z01.818 - Encounter for other preprocedural examination Orders: Orders 2 Comprehensive Met. Panel Today D12.6 - Benign neoplasm of colon, unspecified, Z01.818 - Encounter for other preprocedural examination Colonoscopy - GI Use Only Today D12.6 - Benign neoplasm of colon, unspecified, Z01.818 - Encounter for other preprocedural examination Complete Blood Count Auto Diff Today D12.6 - Benign neoplasm of colon, unspecified, Z01.818 - Encounter for other preprocedural examination Medications: New 2 peg 3350-electrolytes 236-22.74-6.74 -5.86 gram (Golytely) until fecal effluent is clear; do not exceed a total volume of 2,000 mL 240 mL PO Q10M 1 day 4,000 mL 0RF Z12.11 - Encounter for screening for malignant neoplasm of colon Coding Level of Care Code Est Pt Level 4 (51638) Diagnoses GERD (gastroesophageal reflux disease) K21.9 Diarrhea R19.7 Tubular adenoma of colon D12.6 Pre-op examination Z01.818
[2022-10-31 13:00] VITALS: BP 132/71; PULSE 69; BMI 39.3
== END 2022-10-31 13:46 | disposition home or self-care (01) ==
PROVIDERS: PCP Family Medicine; Visit Provider Nurse Practitioner
DX: K21.9 Gastro-esophageal reflux disease without esophagitis (principal); R19.7 Diarrhea, unspecified; D12.6 Benign neoplasm of colon, unspecified; Z01.818 Encounter for other preprocedural examination
CPT/HCPCS: 99214

== ENCOUNTER → 2022-10-31 12:48 | Outpatient (BNVA) | payer OTHER, SELFPAY | PROVIDERS: PCP Family Medicine; Visit Provider Nurse Practitioner | DX: Z01.818 Encounter for other preprocedural examination (principal); K21.9 Gastro-esophageal reflux disease without esophagitis; R19.7 Diarrhea, unspecified; D12.6 Benign neoplasm of colon, unspecified | CPT/HCPCS: 99212 ==

== ENCOUNTER 2022-11-09 13:58 | Outpatient (REF) | payer OTHER, SELFPAY ==
[2022-11-09 16:05] LABS: MANUAL DIFF FLAG NO
[2022-11-09 16:13] LABS: Basophils Percent Auto 0.7 % (0-2); Eosinophils Absolute Auto 0.1 X10*3/uL (0.0-0.4); Eosinophils Percent Auto 1.9 % (0-4); Hematocrit 35.9 % (37.0-47.0); Hemoglobin 11.1 g/dl (12.0-16.0); Imm Gran Abs Auto 0.01 X10*3/uL (0.00-0.03); Imm Gran Pct Auto 0.2 % (0.0-0.4); Lymphocytes Absolute Auto 1.9 X10*3/uL (1.2-4.9); Mean Corpuscular HGB Conc 30.9 g/dl (31.0-35.0); Mean Corpuscular Hemoglobin 26.5 pg (27.0-33.0); Mean Corpuscular Volume 85.7 fL (80.0-98.0); Mean Platelet Volume 11.2 fL (9.4-12.3); Monocytes Absolute Auto 0.4 X10*3/uL (0.1-1.2); Monocytes Percent Auto 7.3 % (2-11); Neutrophils Absolute Auto 2.9 x10*3/uL (2.0-8.3); Neutrophils Percent Auto 53.9 % (45-73); Platelet Count 214 X10*3/uL (160-400); Red Blood Count 4.19 X10*6/uL (4.20-5.50); Red Cell Distribution Width 15.2 % (11.0-16.0); White Blood Count 5.4 X10*3/uL (4.8-10.8)
[2022-11-09 17:03] LABS: Alanine Aminotransferase 9 U/L (0-31); Albumin Level 4.2 g/dL (3.5-5.0); Alkaline Phosphatase 95 U/L (39-117); Anion Gap 19 (12-20); Aspartate Amino Transferase 12 U/L (5-31); Bilirubin Total 0.3 mg/dL (0.0-1.0); Blood Urea Nitrogen 23 mg/dL (9-16); Calcium 9.4 mg/dL (8.4-10.2); Carbon Dioxide 19 mmol/L (22-29); Chloride 106 mmol/L (96-108); Estimated Glomerular Filt Rate 39; Glucose Random 173 mg/dL (60-115); Potassium 4.7 mmol/L (3.3-5.1); Sodium 139 mmol/L (135-145); Total Protein 7.5 g/dL (6.5-8.0)
== END 2022-11-09 13:59 | disposition home or self-care (01) ==
LOC: HO.HHCL 13:58
PROVIDERS: Visit Provider Nurse Practitioner
DX: Z01.818 Encounter for other preprocedural examination (principal); D12.6 Benign neoplasm of colon, unspecified
CPT/HCPCS: 36415; 80053; 85025

== ENCOUNTER 2023-01-15 13:14 | Day surgery (SDC) | payer OTHER, SELFPAY ==
--- NOTE | 2023-01-12 10:05 | P.CONAN_ITS ---
HPI - Anesthesia Eval Consult details Narrative: 72yo F for Upper Endoscopy and Colonoscopy [facility] Active Problems Active Problems: All Active Problems (Updated 10/31/22 @ 13:41 by ANIA Handy) Pre-op examination (Acute) Urinary urgency (Acute) Overactive bladder (Acute) GERD (gastroesophageal reflux disease) (Acute) Low magnesium level (Acute) Diarrhea (Acute) Colon cancer screening (Acute) Tubular adenoma of colon (Acute) Anemia (Chronic) Past Medical History Medical History Chronic renal insufficiency Anemia Abdominal hyperesthesia Diabetic neuropathy Osteoarthritis Depression History of kidney stones Scoliosis of thoracolumbar spine Varicose vein of leg GERD (gastroesophageal reflux disease) Osteopenia COPD (chronic obstructive pulmonary disease) Asthma Hypomagnesemia DM2 (diabetes mellitus, type 2) HTN (hypertension) PAD (peripheral artery disease) Urinary incontinence Thalamic pain syndrome Liver mass Iron deficiency anemia secondary to inadequate dietary iron intake Family History Family History Daughter Diabetes Brother Heart problem Mother Heart problem Father Asthma Other No family history of cancer Family history of problems with anesthesia: No Surgical History Surgical History Hx of colonoscopy History of angioplasty of peripheral vessel History of laparoscopic appendectomy Hx of section Hx of bilateral cataract extraction History of cholecystectomy History of Problems with Anesthesia: No Social History Social History Household Members: Children Housing: Apartment Are you a primary lead care manager to a significant other at home: No Do you presently have visiting nurse or other home services: No Alcohol intake: former Patient Tobacco Use Status: Never used Tobacco Use of substances other than those prescribed or required for medical reasons: No Are you DNR?: No Advance Directives: No Advance Directives Information Provided: Yes service: No Current occupational status: disabled Meds Allergies Allergy/AdvReac Type Severity Reaction Status Date / Time No Known Allergies Allergy Mild NKA Verified 01/15/23 13:35 Home Medications Medication Instructions Recorded Confirmed Last Taken Type aspirin 81 mg tablet,delayed 81 mg PO QAM 03/19/21 12/11/23 12/03/23 History release atorvastatin 40 mg tablet 40 mg PO BEDTIME 04/23/20 02/02/22 Unknown History blood sugar diagnostic #10 ea 04/23/20 02/02/22 Unknown History carvedilol 12.5 mg tablet 18.75 mg PO BID 04/23/20 02/02/22 Unknown History lancets 33 gauge #100 ea 04/23/20 02/02/22 Unknown History lisinopril 10 mg tablet 10 mg PO QAM 04/23/20 02/02/22 Unknown History memantine 10 mg tablet 10 mg PO BID 04/23/20 02/02/22 Unknown History albuterol sulfate 90 mcg/actuation 2 puff PO Q4-6H PRN dyspnea 05/27/20 02/02/22 Unknown History aerosol inhaler ferrous gluconate 324 mg (38 mg 1 tab PO BID 12/28/20 01/15/23 01/07/23 History iron) tablet magnesium chloride 71.5 mg 1 tab PO BID 12/28/20 02/02/22 Unknown History (magnesium chloride) tablet,delayed release (Slow-Mag) multivitamin with folic acid 400 1 tab PO BEDTIME 01/17/21 02/02/22 Unknown History mcg tablet (Daily-Riley (with folic acid)) acetaminophen 500 mg tablet 500 mg PO DAILY PRN Pain 08/23/21 02/02/22 Unknown History metformin 1,000 mg tablet 1,000 mg PO 09/19/22 Unknown History cyanocobalamin (vitamin B-12) 1,000 mcg PO DAILY 10/31/22 Unknown History 1,000 mcg tablet Exam Pertinent Lab Results Pertinent Lab Results: Laboratory Tests 11/09/22 14:07 WBC 5.4 Hgb 11.1 L Hct 35.9 L Plt Count 214 Sodium 139 Potassium 4.7 Chloride 106 Carbon Dioxide 19 L BUN 23 H Creatinine 1.35 Assessment and Plan Final Anesthetic Review Family History of Problems with Anesthesia: No History of Problems with Anesthesia: No
[2023-01-15 13:20] VITALS: BMI 26.6
--- NOTE | 2023-01-15 13:28 | P.HPSUR_ITS ---
Pre-Procedural Eval Section A Date of Service: 01/15/23 The patient is an INPATIENT: No The History & Physical has been completed within 30 days and I have reviewed it.: No Section B Chief Complaint: Surveillance for colon polyps, GERD Relevant Family History (Specify if Yes): No Relevant Social History: None Present Medications: see Short Stay Collaborative assessment Medical History: Significant History (Chronic renal insufficiency Anemia Abdominal hyperesthesia Diabetic neuropathy Osteoarthritis Depression History of kidney stones Scoliosis of thoracolumbar spine Varicose vein of leg GERD (gastroesophageal reflux disease) Osteopenia COPD (chronic obstructive pulmonary disease) Asthma Hypomagnesemia) History of Previous Operations: Relevant previous surgery/procedure and date(s) (Hx of colonoscopy History of angioplasty of peripheral vessel History of laparoscopic appendectomy Hx of section Hx of bilateral cataract extraction History of cholecystectomy) Allergies: Allergies Allergy/AdvReac Type Severity Reaction Status Date / Time No Known Allergies Allergy Mild NKA Verified 10/31/22 13:01 Review of Systems Sugical H&P ROS: Negative: Constitution, Cardiovascular, Respiratory and Sonam rointestinal Exam Surgical H&P Exam: Normal: Heart, Normal: Lungs, Normal: Extremities and Normal: Abdomen Plan Diagnosis/Plan: Change (Proceed with EGD and Colon) I have reviewed the history and physical and performed a pertinent physical examination on my patient. No changes have occurred unless specified. Time Spent With Patient Time: Total time managing care of this patient today ____ minutes.
[2023-01-15 13:47] VITALS: BP 153/69; PULSE 78; RESP 16; TEMP 36.2; O2SAT 98
[2023-01-15 13:53] LABS: Glucose, Whole Blood 119 mg/dL (60-115)
--- NOTE | 2023-01-15 14:18 | P.OP_ITS ---
Operative Note Operative Note Date of Service: 01/15/23 Narrative: FLEXIBLE TRANSORAL UPPER GASTROINTESTINAL ENDOSCOPY WITH BIOPSIES AND COLONOSCOPY TILL CECUM WITH SNARE POLYPECTOMY AND SUBMUCOSAL INJECTION Pre-op diagnosis: Surveillance for colon polyps, GERD Post-op diagnosis: GERD, gastritis, colon polyp, diverticulosis, hemorrhoids Endoscopist:? Johnny Alba MD Anesthesia:?MAC UPPER ENDOSCOPY Consent: Indications for the procedure and potential complications of bleeding, perforation, reaction to medications and missed diagnosis were discussed with the patient with the help of the [facility] [place] hourly sign language interpreter, Chari, and informed consent was obtained. Instrument: Olympus GIF H 190 mid size upper endoscope Monitoring: Vital signs and clinical assessment, continuous EKG monitoring, Pulse oximetry, Carbon Dioxide monitoring and blood pressure monitoring were done throughout the procedure. Procedure: The patient was placed in the left lateral decubitis position and pre-procedure medications were administered and a bite block was placed. The endoscope was inserted into the mouth and advanced under direct vision to the third part of duodenum. A careful inspection was made as the upper endoscope was withdrawn including a retroflexed examination of the proximal stomach; Findings and interventions are described below. Findings: Larynx: Normal Esophagus: GE junction at 35 cms. No esophagitis , Mazariegos's or stricture. Stomach: Mild gastric erythema with nodular appearing gastric mucosa in the fundus and body of the stomach. Biopsies were obtained from the body and antrum. Grade 2 flap valve on retroflexed examination of the cardia. Duodenum: Normal bulb and descending duodenum. Biopsies were obtained from 3rd part of the duodenum to check for celiac sprue Intervention: Biopsies as noted above COLONOSCOPY PROCEDURE NOTE Consent: Indications for the procedure and potential complications of bleeding, perforation, reaction to medications and missed diagnosis were discussed with the patient and informed consent was obtained. Instrument: Olympus PCF H 190 L variable stiffness pediatric colonoscope Monitoring: Vital signs and clinical assessment, intermittent blood pressure monitoring, continuous EKG monitoring, Pulse oximetry and Carbon Dioxide monitoring were done throughout the procedure. Colon withdrawl time was 16 minutes. Procedure: The patient was placed in the left lateral decubitis position and pre-procedure medications were administered. After a digital rectal examination of the ano-rectum, the video colonoscope was inserted into the rectum and advanced through the colon to the cecum. The colonoscope was slowly withdrawn in a retrograde panoramic fashion and the colon mucosa was carefully examined including a retroflexed view of the rectum. Findings and interventions are described below. Procedure Difficulty: : Without difficulty Findings: Terminal Ileum: Not evaluated Cecum: Normal Ascending Colon: Normal Transverse Colon: A 12-15 mm flat polyp in the proximal transverse colon. The polyp was raised with 4 cc of Eleview and polyp was removed with a hot snare Descending Colon: Moderate diverticulosis Sigmoid Colon: Severe diverticulosis with luminal narrowing Rectum: Normal Ano-rectum: Moderate internal hemorrhoids Colon preparation: Good after some irrigation Impression and Post Procedure Diagnosis: Endoscopy Findings: STOMACH: Nodular gastritis DUODENUM: Normal - biopsied to check for celiac sprue Colonoscopy Findings: One medium sized polyps removed Moderate to severe diverticulosis seen in the left colon Moderate hemorrhoids on retroflexed exam. Plan: Await pathology results Patient has an appointment on 02/01/23 in the [facility] with Courtney Reyes NP. Repeat Colonoscopy interval based on path results - in 3 years if polyps is adenomatous and 5 years if polyp is hyperplastic (due to a hx of adenomatous colon polyps). Above findings were reviewed with the patient and colon polyps and GERD handouts were given in the discharge area
[2023-01-15 15:11] VITALS: BP 114/70; PULSE 96; RESP 23; TEMP 36.1; O2SAT 96
[2023-01-15 15:26] VITALS: BP 155/74; PULSE 82; RESP 20; TEMP 37.1; O2SAT 97
== END 2023-01-15 15:56 | disposition home or self-care (01) ==
PROVIDERS: Visit Provider Internal Medicine Gastroenterology
PROC: (CPT 43239; principal; 2023-01-15 15:00)
DX: K21.9 Gastro-esophageal reflux disease without esophagitis (principal); K29.70 Gastritis, unspecified, without bleeding; R19.7 Diarrhea, unspecified; Z12.11 Encounter for screening for malignant neoplasm of colon; D12.3 Benign neoplasm of transverse colon; K57.30 Diverticulosis of large intestine without perforation or abscess without bleeding; K64.8 Other hemorrhoids; Z86.010 Personal history of colon polyps; E11.9 Type 2 diabetes mellitus without complications; I10 Essential (primary) hypertension; D64.9 Anemia, unspecified; Z87.442 Personal history of urinary calculi; J44.9 Chronic obstructive pulmonary disease, unspecified; D50.9 Iron deficiency anemia, unspecified; Z90.49 Acquired absence of other specified parts of digestive tract; Z79.82 Long term (current) use of aspirin; Z79.899 Other long term (current) drug therapy; Z79.84 Long term (current) use of oral hypoglycemic drugs
CPT/HCPCS: 43239; 45385; 45381; 82947; 88305; 88342; J2704

== ENCOUNTER → 2023-01-15 13:14 | Outpatient (BNV) | payer OTHER, SELFPAY | PROVIDERS: Visit Provider Internal Medicine Gastroenterology | DX: Z12.11 Encounter for screening for malignant neoplasm of colon (principal); K21.9 Gastro-esophageal reflux disease without esophagitis; K29.70 Gastritis, unspecified, without bleeding; K57.30 Diverticulosis of large intestine without perforation or abscess without bleeding; K64.8 Other hemorrhoids; K31.7 Polyp of stomach and duodenum; D12.3 Benign neoplasm of transverse colon | CPT/HCPCS: 43239; 45381; 45385 ==

== ENCOUNTER 2023-01-25 12:42 | Outpatient (REF) | payer OTHER, SELFPAY ==
[2023-01-25 14:27] LABS: MANUAL DIFF FLAG NO
[2023-01-25 14:34] LABS: Basophils Absolute Auto 0.1 X10*3/uL (0.0-0.2); Basophils Percent Auto 1.1 % (0-2); Eosinophils Absolute Auto 0.2 X10*3/uL (0.0-0.4); Hematocrit 35.4 % (37.0-47.0); Hemoglobin 10.8 g/dl (12.0-16.0); Imm Gran Abs Auto 0.03 X10*3/uL (0.00-0.03); Imm Gran Pct Auto 0.5 % (0.0-0.4); Lymphocytes Absolute Auto 1.8 X10*3/uL (1.2-4.9); Lymphocytes Percent Auto 32.7 % (20-40); Mean Corpuscular HGB Conc 30.5 g/dl (31.0-35.0); Mean Corpuscular Hemoglobin 25.7 pg (27.0-33.0); Mean Corpuscular Volume 84.3 fL (80.0-98.0); Mean Platelet Volume 10.6 fL (9.4-12.3); Monocytes Absolute Auto 0.6 X10*3/uL (0.1-1.2); Monocytes Percent Auto 10.8 % (2-11); Neutrophils Absolute Auto 2.9 x10*3/uL (2.0-8.3); Neutrophils Percent Auto 51.9 % (45-73); Platelet Count 290 X10*3/uL (160-400); Red Cell Distribution Width 14.7 % (11.0-16.0); White Blood Count 5.6 X10*3/uL (4.8-10.8)
[2023-01-25 14:57] LABS: Alanine Aminotransferase 20 U/L (0-31); Albumin Level 4.1 g/dL (3.5-5.0); Alkaline Phosphatase 101 U/L (39-117); Anion Gap 14 (12-20); Aspartate Amino Transferase 14 U/L (5-31); Bilirubin Total 0.3 mg/dL (0.0-1.0); Blood Urea Nitrogen 19 mg/dL (9-16); Calcium 10.2 mg/dL (8.4-10.2); Carbon Dioxide 27 mmol/L (22-29); Chloride 102 mmol/L (96-108); Cholesterol 153 mg/dL (<200); Estimated Glomerular Filt Rate 31; Glucose Random 202 mg/dL (60-115); HDL Cholesterol 40 mg/dL (>40); LDL Cholesterol Calculated 83 mg/dL (<100); Potassium 5.1 mmol/L (3.3-5.1); Sodium 138 mmol/L (135-145); Total Protein 7.6 g/dL (6.5-8.0); Triglycerides 153 mg/dL (<150)
[2023-01-25 15:07] LABS: Ferritin 76 ng/mL (10-250)
[2023-01-25 15:19] LABS: Folate 19.3 ng/mL (> or = 4.0); Vitamin B12 1636 pg/mL (200-900)
[2023-01-25 15:59] LABS: Microalbumin Urine < 5.0 mg/L
== END 2023-01-25 12:43 | disposition home or self-care (01) ==
LOC: HO.CHCLDS 12:42
PROVIDERS: Visit Provider Family Medicine
DX: E11.65 Type 2 diabetes mellitus with hyperglycemia (principal)
CPT/HCPCS: 36415; 80053; 80061; 82043; 82570; 82607; 82728; 82746; 85025

== ENCOUNTER 2023-02-14 13:01 | Outpatient (AMB) | payer OTHER, SELFPAY ==
--- NOTE | 2023-02-14 13:02 | A.OFFVIS_ITS ---
Intake Vital Signs 02/14/23 13:18 Height 5 ft 4 in Weight 147 lb 11.355 oz BMI 25.4 BP 126/57 L Blood Pressure Location Rt brachial Position Sitting Pulse 81 Intake Visit Reasons: s/p egd/colon Intake Note: Ayleen presents in the office today in follow up of EGD and colonoscopy. CC: She underwent EGD and Colonoscopy on 01/15/[address] Alba. Patient doing well denies any GI concerns. Mig Tig Welder Required: Yes Mig Tig Welder Name: Blane [id number] Accompanied by: Daughter Allergies No Known Allergies Allergy (Mild, Verified 02/14/23 13:21) NKA HPI s/p egd/colon HPI Details Assessment & Plan (1) GERD (gastroesophageal reflux diseas e): Code(s): K21.9 - Gastro-esophageal reflux disease without esophagitis Plan: [place] #Yuli, Hari The burning in her chest has resolved with the pantoprazole and she is now happy with her GI regimen. She also has famotidine for breakthrough available. She is continuing with her fiber therapy and she feels this is controlling her diarrhea well. She is due for repeat colonoscopy related to her history of a very large tubular adenoma in 2020. She is agreeing to have a this ordered today as it likely will be scheduled until 2023. He says that her asthma COPD her cardiac disease are well controlled. There are no prior problems with anesthesia or sedation. There are no infectious problems. I will see her in 6 months for her regular care and of course after her colonoscopy.. She is going to be going to refresh her labs today. (2) Diarrhea: Code(s): R19.7 - Diarrhea, unspecified (3) Tubular adenoma of colon: Comment: 05/2020 SCOPE GREATER THAN 10 MM SESSILE REPEAT IN 3 YEARS Code(s): D12.6 - Benign neoplasm of colon, unspecified (4) Pre-op examination: Code(s): Z01.818 - Encounter for other preprocedural examination Orders: Orders Comprehensive Met. Panel Today D12.6 - Benign elsa plasm of colon, un specified, Z01.818 - Encounter for o ther preprocedural examination Colonoscopy - GI U se Only Today D12.6 - Benign elsa plasm of colon, un specified, Z01.818 - Encounter for o ther preprocedural examination Complete Blood Cou nt Auto Diff Today D12.6 - Benign elsa plasm of colon, un specified, Z01.818 - Encounter for o ther preprocedural examination Medications: New peg 3350-electroly jn 236-22.74-6.74 -5.86 gram (Golyt rodriguez) until feca l effluent is jaime r; do not exceed a total volume of 2 ,000 mL 240 mL PO Q10M 1 day 4,000 mL 0RF Z12.11 - Encounter for screening for malignant neoplas m of colon EGD/COLONOSCOPY 01/16/23 Findings: Larynx: Normal Esophagus: GE junction at 35 cms. No esophagitis , Mazariegos's or stricture. Stomach: Mild gastric erythema with nodular appearing gastric mucosa in the fundus and body of the stomach. Biopsies were obtained from the body and antrum. Grade 2 flap valve on retroflexed examination of the cardia. Duodenum: Normal bulb and descending duodenum. Biopsies were obtained from 3rd part of the duodenum to check for celiac sprue Findings: Terminal Ileum: Not evaluated Cecum: Normal Ascending Colon: Normal Transverse Colon: A 12-15 mm flat polyp in the proximal transverse colon. The polyp was raised with 4 cc of Eleview and polyp was removed with a hot snare Descending Colon: Moderate diverticulosis Sigmoid Colon: Severe diverticulosis with luminal narrowing Rectum: Normal Ano-rectum: Moderate internal hemorrhoids Colon preparation: Good after some irrigation Impression and Post Procedure Diagnosis: Endoscopy Findings: STOMACH: Nodular gastritis DUODENUM: Normal - biopsied to check for celiac sprue Colonoscopy Findings: One medium sized polyps removed Moderate to severe diverticulosis seen in the left colon Moderate hemorrhoids on retroflexed exam. BIOPSY Received: 01/16/23 Diagnosis A. Small bowel, biopsy: Small intestinal mucosa with mildly increased intraepithelial lymphocytes and preserved villous architecture. See comment. B. Stomach, antrum, biopsy: Antral-type mucosa with mild chronic inactive inflammation; no Helicobacter organisms seen. C. Stomach, body, biopsy: Oxyntic mucosa with mild chronic inactive inflammation; no Helicobacter organisms seen. D. Colon, transverse, polypectomy: Tubular adenoma; negative for high-grade dysplasia or carcinoma. COMMENT: The findings in the small bowel are non-specific. The differential diagnosis is broad and includes infection (e.g. viral or H. pylori), medication/drugs (e.g. NSAIDs), gluten sensitivity/celiac disease, bacterial overgrowth, tropical sprue, immunodeficiency syndromes (e.g. IgA deficiency, CVID), autoimmune enteropathy, Crohns and collagen vascular disease, among others. Please correlate with clinical and other laboratory findings TODAYS VISIT [place] #[id number] She is here today with a female family member who is supportive. The procedure needs to be repeated in 3 years. The procedure was well tolerated. The results were explained and the patient is agreeable to the follow-up interval as stated. The bowel pattern has returned to normal. Education was provided to tell any 1st degree relatives about their findings to be sure that they are screened by age 45. Educated that they will be put on a recall list when it is time for their repeat scope but should they move out of state or away from the hospital they will need to remember along with their primary to repeat the procedure in a timely fashion to avoid any adverse complications. She continues on pantroprazole and famotidine and fiber for her GERD and diarrhea. ROV 6 mos. PFSH Medical History Chronic renal insufficiency Anemia Abdominal hyperesthesia Diabetic neuropathy Osteoarthritis Depression History of kidney stones Scoliosis of thoracolumbar spine Varicose vein of leg GERD (gastroesophageal reflux disease) Osteopenia COPD (chronic obstructive pulmonary disease) Asthma Hypomagnesemia DM2 (diabetes mellitus, type 2) HTN (hypertension) PAD (peripheral artery disease) Urinary incontinence Thalamic pain syndrome Liver mass Iron deficiency anemia secondary to inadequate dietary iron intake Surgical History Hx of colonoscopy History of angioplasty of peripheral vessel History of laparoscopic appendectomy Hx of section Hx of bilateral cataract extraction History of cholecystectomy Family History Daughter Diabetes Brother Heart problem Mother Heart problem Father Asthma Other No family history of cancer Social History Household Members: Children Housing: Apartment Are you a primary personal care worker to a significant other at home: No Do you presently have visiting nurse or other home services: No Alcohol intake: former Patient Tobacco Use Status: Never used Tobacco service: No Current occupational status: disabled Review of Systems Const Denies fatigue, Denies fever(s), Denies night sweats, Denies poor appetite and Denies weight loss ENT Reports Normal hearing present, Denies dysphagia, Denies odynophagia, Denies throat swelling and Denies tongue swelling Card Reports no additional complaints Resp Reports no additional complaints GI Denies abdominal pain, Denies melena, Denies bloating, Denies hematochezia, Denies constipation, Denies GI cramping, Denies dysphagia, Denies excessive flatus, Denies early satiety, Reports heartburn, Denies diarrhea, Reports loose stools, Denies nausea, Denies odynophagia, Denies vomiting and Denies hematemesis Skin/Breast Denies pruritus, Denies lesions, Denies rash and Denies jaundice Neuro Reports Normal hearing present and Denies Abnormal speech present Endo Denies fatigue Aller/Immun Denies throat swelling and Denies tongue swelling Physical Exam Vital Signs: Last Vital Signs Pulse 81 02/14/23 13:18 BP 126/57 L 02/14/23 13:18 BMI result Body Mass Index 25.4 Const General: cooperative, no acute distress, well developed and well groomed Nutritional Appearance: average body habitus and well nourished Orientation/consciousness: oriented to person, oriented to place and oriented to time Limitations: language barrier HEENT Head: Yes normocephalic and Yes atraumatic Eyes General: appearance normal, both eyes and all related structures Pupils: Equal, round and reactive pupils present Neck Neck: Yes normal visual inspection and Yes no lymphadenopathy Thyroid: Thyroid normal Resp Effort & Inspection: normal respiratory effort and able to speak in complete sentences Auscultation: clear to auscultation bilaterally Cardio Rate: regular rate Rhythm: regular rhythm Heart sounds: Normal, physiologic split S2 sound present Peripheral pulses: radial pulses present and posterior tibial pulses present GI Inspection: No distended, No Abdominal panniculus present and Yes obesity Palpation (GI): Soft to palpation, nontender, no guarding, not rigid and No hepatosplenomegaly present Percussion: Yes normal to percussion Auscultation: normal bowel sounds Rectal Exam - Female: deferred Skin General skin exam: no rashes or lesions noted, turgor normal, skin not dry, no jaundice, No spider nevi and no striae Rashes: no rashes Nails: normal Neuro General: oriented to person, oriented to place and oriented to time Cranial nerves: Yes Equal, round and reactive pupils present and Yes Normal hearing present Speech: No Abnormal speech present Extrem General: Yes normal to inspection, No clubbing, No cyanosis and No edema Psych Appearance: grossly normal and well kempt Mental Status: mental status grossly normal Speech and movement: Normal speech and movement present Affect: normal affect Attitude: cooperative Thought process: Normal thought process present and not confabulating Thought content: Normal thought content present Insight: Limited insight present (Psych) Judgement: Limited judgement present (Psych) Assessment & Plan Assessment & Plan (1) Tubular adenoma of colon: Comment: 01/2023=TA 12mm repeat in 3 years; 05/2020 SCOPE GREATER THAN 10 MM SESSILE REPEAT IN 3 YEARS Code(s): D12.6 - Benign neoplasm of colon, unspecified (2) GERD (gastroesophageal reflux disease): Code(s): K21.9 - Gastro-esophageal reflux disease without esophagitis (3) Diarrhea: Code(s): R19.7 - Diarrhea, unspecified (4) Low magnesium level: Code(s): R79.0 - Abnormal level of blood mineral (5) History of esophagogastroduodenoscopy (EGD): Code(s): Z98.890 - Other specified postprocedural states Plan [place] #[id number] She is here today with a female family member who is supportive. The procedure needs to be repeated in 3 years. The procedure was well tolerated. The results were explained and the patient is agreeable to the follow-up interval as stated. The bowel pattern has returned to normal. Education was provided to tell any 1st degree relatives about their findings to be sure that they are screened by age 45. Educated that they will be put on a recall list when it is time for their repeat scope but should they move out of state or away from the hospital they will need to remember along with their primary to repeat the procedure in a timely fashion to avoid any adverse complications. She continues on pantroprazole and famotidine and fiber for her GERD and diarrhea. ROV 6 mos. Medications: New pantoprazole 40 mg PO DAILY 30 tabs 6RF Changed From famotidine 20 mg PO BID 60 tabs 6RF K21.9 - Gastro-esophageal reflux disease without esophagitis To famotidine 20 mg PO BEDTIME 60 tabs 6RF K21.9 - Gastro-esophageal reflux disease without esophagitis Refilled methylcellulose (laxative) (Fiber Laxative (methylcellulose)) 1,000 mg (2 x 500 mg) PO BID 120 tabs 6RF R19.7 - Diarrhea, unspecified Coding Level of Care Code Est Pt Level 3 (96049) Diagnoses Tubular adenoma of colon D12.6 GERD (gastroesophageal reflux disease) K21.9 Diarrhea R19.7 Low magnesium level R79.0 History of esophagogastroduodenoscopy (EGD) Z98.890
[2023-02-14 13:18] VITALS: BP 126/57; PULSE 81; BMI 25.4
== END 2023-02-14 13:45 | disposition home or self-care (01) ==
PROVIDERS: PCP Family Medicine; Visit Provider Nurse Practitioner
DX: D12.6 Benign neoplasm of colon, unspecified (principal); K21.9 Gastro-esophageal reflux disease without esophagitis; R19.7 Diarrhea, unspecified; R79.0 Abnormal level of blood mineral; Z98.890 Other specified postprocedural states
CPT/HCPCS: 99213

== ENCOUNTER → 2023-02-14 13:01 | Outpatient (BNVA) | payer OTHER, SELFPAY | PROVIDERS: PCP Family Medicine; Visit Provider Nurse Practitioner | DX: D12.6 Benign neoplasm of colon, unspecified (principal); K21.9 Gastro-esophageal reflux disease without esophagitis; R19.7 Diarrhea, unspecified; R79.0 Abnormal level of blood mineral; Z98.890 Other specified postprocedural states | CPT/HCPCS: 99212 ==

== ENCOUNTER 2023-04-23 14:54 | Emergency (ER) | payer OTHER, SELFPAY ==
--- NOTE | ~2023-04-23 | CT_ITS ---
EXAMINATION: CT CHEST WITHOUT CONTRAST CLINICAL INFORMATION: Chest pain. COMPARISON: CT chest 04/09/2019. TECHNIQUE: Multidetector volumetric CT imaging of the chest was done. Axial MIP volume rendering provided. Sagittal and coronal reformatted images were obtained. This CT examination was performed using dose optimization techniques as appropriate, variously including the following: *Automated exposure control *Adjustment of mA and/or kV according to patient size (this includes techniques or standardized protocols for targeted exams where dose is matched to indication/reason for exam; i.e. extremities or head) *Use of iterative reconstruction technique DLP: 249 mGy-cm FINDINGS: LUNGS: Limited evaluation secondary to motion. New smooth interlobular septal thickening consistent with pulmonary edema. Multiple new bilateral airspace opacities combination of consolidative, groundglass and nodular in appearance. For example, a consolidative opacity in the right lung base (5:311), a consolidative opacity in the left upper lobe (5:213), a nodular-like opacity in the left upper lobe measuring 0.7 cm (5:165) and several groundglass opacities in the right middle lobe (5:245). Central airways are patent. Redemonstration of right posterolateral tracheal diverticulum (5:51). MEDIASTINUM: The heart is mildly enlarged. No significant pericardial effusion. No mediastinal lymphadenopathy. Evaluation of the hilar structures is very limited in the absence of IV contrast and secondary to motion. However, accounting for this limitation no discrete bulky hilar lymphadenopathy seen. Normal appearance of the thyroid gland. Moderate atherosclerotic disease of the thoracic aorta which is of normal diameter. Pulmonary trunk and right main pulmonary artery are borderline enlarged raising the possibility of pulmonary hypertension. CORONARY ARTERY CALCIFICATION: Severe multivessel coronary artery calcifications. PLEURA: No pleural effusion or pneumothorax. AXILLA: No lymphadenopathy. UPPER ABDOMEN: Coarse calcifications in the left hepatic lobe. Partially imaged atrophic pancreas. Coarse calcifications in the upper pole of the right kidney could represent vascular calcifications or calculi. Severe atherosclerotic disease. OSSEOUS STRUCTURES: Degenerative changes of the spine. No acute or aggressive appearing osseous findings. CT/CT chest wo IV con IMPRESSION: Limited evaluation secondary to motion and lack of IV contrast. 1. Multifocal opacities combination of consolidative, groundglass and nodular suspicious for an atypical infectious/inflammatory process. Recommend short-term follow-up to ensure resolution and rule out underlying malignancy. 2. Smooth interlobular septal thickening consistent with pulmonary edema. 3. Severe atherosclerotic disease with severe multivessel coronary calcifications. Findings suggesting pulmonary hypertension. Recommend follow-up with [facility].
--- NOTE | ~2023-04-23 | XR_ITS ---
EXAMINATION: XR CHEST CLINICAL INFORMATION: Chest pain. COMPARISON: CT chest lung screening 04/09/2019. TECHNIQUE: 2 views of the chest were obtained. FINDINGS: Diffuse interstitial prominence. Nonspecific focal hazy opacity projecting over the lower lung overlying the thoracic on the lateral view. Cardiomediastinal silhouette is enlarged. S-shaped thoracolumbar scoliosis Thoracic spondylosis. No acute osseous findings. Moderate atherosclerotic disease of the aorta. XR/XR chest 2V IMPRESSION: 1. Focal hazy airspace opacity projecting over the lower lungs overlying the lower thoracic spine on the lateral view is suspicious for an early infiltrate. Recommend short-term follow-up to ensure resolution. 2. Mild diffuse interstitial prominence is indeterminate could be seen with small airways disease or chronic interstitial lung abnormality. Further characterization with outpatient CT chest as clinically warranted. 3. Enlarged cardiomediastinal silhouette suggesting cardiomegaly.
--- NOTE | 2023-04-23 14:58 | ECG_ITS ---
Test Reason : chest pain Blood Pressure : / mmHG Vent. Rate : 061 BPM Atrial Rate : 061 BPM P-R Int : 154 ms QRS Dur : 068 ms QT Int : 424 ms P-R-T Axes : 030 -11 144 degrees QTc Int : 426 ms Normal sinus rhythm Low voltage QRS ST & T wave abnormality, consider lateral ischemia Abnormal ECG When compared with ECG of 22-OCT-2018 14:13, Non-specific change in ST segment in Anterior leads T wave inversion now evident in Anterolateral leads Referred By: Janae Cesar Electronically Signed By:TREVON CHEEMA
[2023-04-23 15:02] VITALS: BP 142/67; PULSE 62; RESP 18; TEMP 36; O2SAT 98; BMI 36.3
--- NOTE | 2023-04-23 15:02 | ED_ITS ---
HPI - Chest Pain General Chief Complaint: Chest Pain Stated Complaint: chest pain Time Seen by Provider: 04/23/23 18:33 Source: patient and family Mode of arrival: ambulatory Limitations: no limitations History of Present Illness HPI narrative: Patient diabetic, HTN noticed about 1400 mid chest pain with sweating feels heavy in the chest radiating to neck and all over the chest increases on palpation and taking deep breath patient does have chronic cough with mucoid phlegm no fever patient is ex-smoker no history of coronary artery disease Related Data Home Medications Medication Instructions Recorded Confirmed aspirin 81 mg tablet,delayed 81 mg PO QAM 04/23/20 01/15/23 release atorvastatin 40 mg tablet 40 mg PO BEDTIME 04/23/20 02/02/22 blood sugar diagnostic #10 ea 04/23/20 02/02/22 carvedilol 12.5 mg tablet 18.75 mg PO BID 04/23/20 02/02/22 lancets 33 gauge #100 ea 04/23/20 02/02/22 lisinopril 10 mg tablet 10 mg PO QAM 04/23/20 02/02/22 memantine 10 mg tablet 10 mg PO BID 04/23/20 02/02/22 albuterol sulfate 90 mcg/actuation 2 puff PO Q4-6H PRN dyspnea 05/27/20 02/02/22 aerosol inhaler ferrous gluconate 324 mg (38 mg 1 tab PO BID 12/28/20 01/15/23 iron) tablet magnesium chloride 71.5 mg 1 tab PO BID 12/28/20 02/02/22 (magnesium chloride) tablet,delayed release (Slow-Mag) multivitamin with folic acid 400 1 tab PO BEDTIME 01/17/21 02/02/22 mcg tablet (Daily-Riley (with folic acid)) acetaminophen 500 mg tablet 500 mg PO DAILY PRN Pain 08/23/21 02/02/22 cyanocobalamin (vitamin B-12) 1,000 mcg PO DAILY 10/31/22 1,000 mcg tablet empagliflozin 10 mg tablet 10 mg PO DAILY 02/14/23 (Jardiance) glipizide 10 mg tablet 10 mg PO BID 02/14/23 metformin 1,000 mg tablet 1,000 mg PO DAILY 02/14/23 Previous Rx's Medication Instructions Recorded mirabegron 25 mg tablet,extended 25 mg PO DAILY 90 days #90 tabs 02/02/22 release 24 hr (Myrbetriq) famotidine 20 mg tablet 20 mg PO BEDTIME #60 tabs 02/14/23 methylcellulose (laxative) 500 mg 1,000 mg (2 x 500 mg) PO BID #120 02/14/23 tablet (Fiber Laxative tabs (methylcellulose)) pantoprazole 40 mg tablet,delayed 40 mg PO DAILY #30 tabs 02/14/23 release Allergies Allergy/AdvReac Type Severity Reaction Status Date / Time No Known Allergies Allergy Mild NKA Verified 02/14/23 13:21 Review of Systems 2 Review of Systems: Yes all other systems are reviewed and are negative [facility] Past Medical History Medical History Chronic renal insufficiency Anemia Abdominal hyperesthesia Diabetic neuropathy Osteoarthritis Depression History of kidney stones Scoliosis of thoracolumbar spine Varicose vein of leg GERD (gastroesophageal reflux disease) Osteopenia COPD (chronic obstructive pulmonary disease) Asthma Hypomagnesemia DM2 (diabetes mellitus, type 2) HTN (hypertension) PAD (peripheral artery disease) Urinary incontinence Thalamic pain syndrome Liver mass Iron deficiency anemia secondary to inadequate dietary iron intake Surgical History Hx of colonoscopy History of angioplasty of peripheral vessel History of laparoscopic appendectomy Hx of section Hx of bilateral cataract extraction History of cholecystectomy Family History Family History Daughter Diabetes Brother Heart problem Mother Heart problem Father Asthma Other No family history of cancer Social History Social History Household Members: Children Housing: Apartment Are you a primary field care manager to a significant other at home: No Do you presently have visiting nurse or other home services: No Alcohol intake: former Patient Tobacco Use Status: Never used Tobacco Advance Directives: No Advance Directives Information Provided: No service: No Current occupational status: disabled Physical Exam 2 Vital Signs: Vital Signs: Last Vital Signs Temp 0 F L 04/24/23 00:31 Pulse 86 04/24/23 00:31 Resp 18 04/24/23 00:31 BP 158/96 H 04/24/23 00:31 Pulse Ox 96 04/24/23 00:31 O2 Del Method Nasal Cannula 04/24/23 00:31 O2 Flow Rate 2 04/24/23 00:31 BMI result Body Mass Index 36.3 Appearance: Alert. Oriented X3. No acute distress. Eyes: No pallor or icterus ENT: Pharynx normal. Oral Mucosa moist Neck: Normal inspection. Neck supple. CVS: Normal heart rate and rhythm. Pulses normal. Respiratory: No respiratory distress. Equal air entry bilateral, prolonged expirations Abdomen: Soft and nontender. Bowel sounds are present, no mass palpable, no CVA tenderness Skin: Skin warm and dry. Normal skin color. Normal skin turgor. Extremities: No lower extremity edema. No calf tenderness Neuro: Oriented X 3. Course Course Course Narrative: RME performed by Janae Cesar PA-C. Patient is a 73 year old assigned female at presenting to the emergency department with chest pain. Detailed physical exam and review of systems are deferred to the primary care nurse practitioner. Labs, imaging, and swabs ordered. Patient placed back in the waiting room pending room availability and results. Medications Administered Discontinued Medications Generic Name Dose Route Start Last Admin Trade Name Freq PRN Reason Stop Dose Admin Al Hydroxide/Mg Hydroxide 30 ml 04/23/23 18:52 04/23/23 19:26 Magnesium Hydrox/Alum Hydrox 30 Ml Oral.Susp PO 04/23/23 18:53 30 ml ONCE ONE Administration Albuterol/Ipratropium 3 ml 04/23/23 20:05 04/23/23 20:09 Albuterol/Iprat 2.5/0.5mg 3 Ml Ampul.Neb INHALE 04/23/23 20:06 3 ml ONCE ONE Administration Aspirin 162 mg 04/23/23 23:09 04/23/23 23:16 Aspirin 81 Mg Tab.Chew PO 04/23/23 23:10 162 mg ONCE ONE Administration Heparin Sodium (Porcine) 4,000 unit 04/23/23 22:54 04/23/23 23:15 Heparin Sodium,Porcine 5,000 Unit/Ml Vial IVPUSH 04/23/23 22:55 4,000 unit ONCE ONE Administration Sodium Chloride 1,000 mls @ 999 mls/hr 04/23/23 22:32 04/23/23 22:47 Ns IV 04/23/23 23:32 999 mls/hr .Q1H1M ONE Administration Heparin Sodium/Sodium Chloride 25,000 unit in 250 mls @ 0 mls/hr 04/23/23 23:30 04/23/23 23:41 Heparin Sodium,Porcine/1/2ns IVCONT 12 units/kg/hr .Q0M EDUARDO 8.2 mls/hr Administration Protocol Per Protocol Nitroglycerin/Dextrose 100 mg in 250 mls @ 0 mls/hr 04/24/23 00:15 04/24/23 00:17 Nitroglycerin/D5w IVCONT 20 mcg/min .Q0M EDUARDO 3 mls/hr Administration Protocol Per Protocol Lidocaine HCl 15 ml 04/23/23 19:17 04/23/23 19:27 Lidocaine Hcl Viscous 2 % 15 Ml Solution MUCOUS MEM 04/23/23 19:18 15 ml ONCE ONE Administration Morphine Sulfate 2 mg 04/23/23 22:32 04/23/23 22:49 Morphine Sulfate 2 Mg/Ml Cartridge IVPUSH 04/23/23 22:33 2 mg ONCE ONE Administration Protocol Nitroglycerin 1 inch 04/23/23 22:21 04/23/23 22:49 Nitroglycerin 2 % Oint 1 Gm Packet TRANSDERMA 04/23/23 22:22 1 inch ONCE ONE Administration Ondansetron HCl 4 mg 04/23/23 22:32 04/23/23 22:48 Ondansetron Hcl 4 Mg/2 Ml Vial IVPUSH 04/23/23 22:33 4 mg ONCE ONE Administration Ticagrelor 180 mg 04/23/23 23:09 04/23/23 23:16 Ticagrelor 90 Mg Tablet PO 04/23/23 23:10 180 mg ONCE ONE Administration Medical Decision Making Medical Decision Making [facility] Narrative: Patient with chest pain with history of COPD initial EKG showed slight T inversion in V4 V5 troponin was 3.2. Repeat troponin was 24.9 patient continued to have discomfort in the chest was given nitro paste heparin bolus and repeat EKG showed ST coving in V4 and V3 with T depression repeat troponin is 864. Case discussed Cardiology Dr. Chahal advise consult with cardiac catheterization for STEMI transfer patient was given Brilinta and aspirin [address] Schultz at [facility] accepted the patient for transfer awaiting for the bed patient is on heparin drip 2400 patient is still complaining of chest pain only partially improved after morphine will start nitro drip 0015 EMS here RN starting nitro drip blood pressure 170/88 still having the pain chest CT was done essentially negative final report is pending Differential Diagnosis Differential Diagnoses: The differential diagnosis associated with the presentation includes ACS/non-STEMI/STEMI/PE/pneumothorax/pneumonia/COPD Admission/Observation Consideration of admission/observation: Escalation of care including admission/observation considered Lab Data MDM Lab Attestation statement: I reviewed the patient's lab results. 04/23/23 15:21 04/23/23 15:21 Labs: Lab Results 04/23/23 04/23/23 04/23/23 Range/Units 15:21 19:39 22:40 WBC 5.9 (4.8-10.8) X10*3/uL RBC 4.40 (4.20-5.50) X10*6/uL Hgb 11.2 L (12.0-16.0) g/dl Hct 36.6 L (37.0-47.0) % MCV 83.2 (80.0-98.0) fL MCH 25.5 L (27.0-33.0) pg MCHC 30.6 L (31.0-35.0) g/dl RDW 15.9 (11.0-16.0) % Plt Count 189 D (160-400) X10*3/uL MPV 10.1 (9.4-12.3) fL Immature Gran % (Auto) 0.3 (0.0-0.4) % Neut % (Auto) 50.2 (45-73) % Lymph % (Auto) 38.9 (20-40) % [place] % (Auto) 7.3 (2-11) % Eos % (Auto) 2.5 (0-4) % Baso % (Auto) 0.8 (0-2) % Lymph # (Auto) 2.3 (1.2-4.9) X10*3/uL [place] # (Auto) 0.4 (0.1-1.2) X10*3/uL Eos # (Auto) 0.2 (0.0-0.4) X10*3/uL Baso # (Auto) 0.1 (0.0-0.2) X10*3/uL Abs Immat Gran (auto) 0.02 (0.00-0.03) X10*3/uL Absolute Neuts (auto) 3.0 (2.0-8.3) x10*3/uL Absolute Nucleated RBC 0.000 (0.0-0.012) X10*3/uL Nucleated RBC % (auto) 0.0 (0.0-0.2) /100WBC PT (11.1-13.3) SEC INR (0.9-1.1) APTT (26.0-36.8) SEC Sodium 140 (135-145) mmol/L Potassium 4.7 (3.3-5.1) mmol/L Chloride 108 (96-108) mmol/L Carbon Dioxide 23 (22-29) mmol/L Anion Gap 14 (12-20) BUN 31 H (9-16) mg/dL Creatinine 1.89 H (0.5-1.4) mg/dL Estim Creat Clear Calc 19.4 Estimated GFR 26 Random Glucose 206 H (60-115) mg/dL Calcium 9.4 D (8.4-10.2) mg/dL Total Bilirubin 0.3 (0.0-1.0) mg/dL AST 11 (5-31) U/L ALT 11 (0-31) U/L Alkaline Phosphatase 114 (39-117) U/L Troponin I High Sens 3.2 24.2 H D 864.4 H* D (<3.5-17.0) ng/L Total Protein 7.5 (6.5-8.0) g/dL Albumin 4.1 (3.5-5.0) g/dL 04/23/23 Range/Units 23:13 WBC (4.8-10.8) X10*3/uL RBC (4.20-5.50) X10*6/uL Hgb (12.0-16.0) g/dl Hct (37.0-47.0) % MCV (80.0-98.0) fL MCH (27.0-33.0) pg MCHC (31.0-35.0) g/dl RDW (11.0-16.0) % Plt Count (160-400) X10*3/uL MPV (9.4-12.3) fL Immature Gran % (Auto) (0.0-0.4) % Neut % (Auto) (45-73) % Lymph % (Auto) (20-40) % [place] % (Auto) (2-11) % Eos % (Auto) (0-4) % Baso % (Auto) (0-2) % Lymph # (Auto) (1.2-4.9) X10*3/uL [place] # (Auto) (0.1-1.2) X10*3/uL Eos # (Auto) (0.0-0.4) X10*3/uL Baso # (Auto) (0.0-0.2) X10*3/uL Abs Immat Gran (auto) (0.00-0.03) X10*3/uL Absolute Neuts (auto) (2.0-8.3) x10*3/uL Absolute Nucleated RBC (0.0-0.012) X10*3/uL Nucleated RBC % (auto) (0.0-0.2) /100WBC PT 13.3 (11.1-13.3) SEC INR 1.1 (0.9-1.1) APTT 28.7 (26.0-36.8) SEC Sodium (135-145) mmol/L Potassium (3.3-5.1) mmol/L Chloride (96-108) mmol/L Carbon Dioxide (22-29) mmol/L Anion Gap (12-20) BUN (9-16) mg/dL Creatinine (0.5-1.4) mg/dL Estim Creat Clear Calc Estimated GFR Random Glucose (60-115) mg/dL Calcium (8.4-10.2) mg/dL Total Bilirubin (0.0-1.0) mg/dL AST (5-31) U/L ALT (0-31) U/L Alkaline Phosphatase (39-117) U/L Troponin I High Sens (<3.5-17.0) ng/L Total Protein (6.5-8.0) g/dL Albumin (3.5-5.0) g/dL Independent Interpretation I performed an independent interpretation of an: EKG and Plain X-Ray Interpretation: 1st done at 15:14 normal sinus rhythm heart rate 61 beats per minute T inversion in V4 and V5 1 and aVL Second EKG at 22:46 normal sinus rhythm heart rate 80 beats per minute T inversion in lead 1 lead aVL V4 V5 with slight ST elevation coving in V4 and V5 Radiology Impression Discussion of test interpretation with radiology: I have reviewed the radiologist's reading. Critical Care Time Critical Care Time Critical Care Time: Yes Total Critical Care Time: 65 Attestation: The patient was critically ill with a high probability of imminent or life threatening deterioration. I spent greater than 100???minutes of discontinuous time evaluating the patient,delivering critical care at the bedside, discussing and evaluating pertinent data with consultants. Critical care time does not include time spent performing separately billable procedures or teaching. Total time spent performing critical care was 90 ?minutes. Discharge Plan Discharge Clinical Impression: Non-ST elevated myocardial infarction (non-STEMI) Patient Disposition: [facility] Transfer Details: Dr. Schultz cardiac unit Prescriptions: No Action albuterol sulfate 90 mcg/actuation HFA aerosol inhaler 2 puff PO Q4-6H PRN (Reason: dyspnea) ferrous gluconate 324 mg (38 mg iron) tablet 1 tab PO BID Slow-Mag 71.5 mg tablet,delayed release (DR/EC) 1 tab PO BID (DME) lancets 33 gauge misc See Rx Instructions Not Applicable TID Qty: 100 Rx Instructions: As directed memantine 10 mg tablet 10 mg PO BID (DME) blood sugar diagnostic Strip See Rx Instructions Not Applicable TID Qty: 10 Rx Instructions: As directed lisinopril 10 mg tablet 10 mg PO QAM aspirin 81 mg tablet,delayed release (DR/EC) 81 mg PO QAM carvedilol 12.5 mg tablet 18.75 mg PO BID atorvastatin 40 mg tablet 40 mg PO BEDTIME multivitamin with folic acid [Daily-Riley (with folic acid)] 400 mcg tablet 1 tab PO BEDTIME Myrbetriq 25 mg tablet extended release 24 hr 25 mg PO DAILY 90 Days Qty: 90 3RF acetaminophen 500 mg tablet 500 mg PO DAILY PRN (Reason: Pain) metformin 1,000 mg tablet 1,000 mg PO DAILY cyanocobalamin (vitamin B-12) 1,000 mcg tablet 1,000 mcg PO DAILY glipizide 10 mg tablet 10 mg PO BID Jardiance 10 mg tablet 10 mg PO DAILY pantoprazole 40 mg tablet,delayed release (DR/EC) 40 mg PO DAILY Qty: 30 6RF famotidine 20 mg tablet 20 mg PO BEDTIME Qty: 60 6RF Fiber Laxative(methylcellulos) 500 mg tablet 1,000 mg PO BID Qty: 120 6RF Interventions: Acute Care Transfer Worksheet (ED) Last Done: 04/24/23 00:31 Discharge Date/Time: 04/24/23 00:32
--- NOTE | 2023-04-23 15:05 | MHC.EDTECH ---
This tech called PT @ 15:02 . PT was in triage chair with Provider and RN.
[2023-04-23 15:29] LABS: MANUAL DIFF FLAG NO
[2023-04-23 15:30] LABS: Basophils Absolute Auto 0.1 X10*3/uL (0.0-0.2); Basophils Percent Auto 0.8 % (0-2); Eosinophils Absolute Auto 0.2 X10*3/uL (0.0-0.4); Eosinophils Percent Auto 2.5 % (0-4); Hematocrit 36.6 % (37.0-47.0); Hemoglobin 11.2 g/dl (12.0-16.0); Imm Gran Abs Auto 0.02 X10*3/uL (0.00-0.03); Imm Gran Pct Auto 0.3 % (0.0-0.4); Lymphocytes Absolute Auto 2.3 X10*3/uL (1.2-4.9); Lymphocytes Percent Auto 38.9 % (20-40); Mean Corpuscular HGB Conc 30.6 g/dl (31.0-35.0); Mean Corpuscular Hemoglobin 25.5 pg (27.0-33.0); Mean Corpuscular Volume 83.2 fL (80.0-98.0); Mean Platelet Volume 10.1 fL (9.4-12.3); Monocytes Absolute Auto 0.4 X10*3/uL (0.1-1.2); Monocytes Percent Auto 7.3 % (2-11); Neutrophils Percent Auto 50.2 % (45-73); Platelet Count 189 X10*3/uL (160-400); Red Cell Distribution Width 15.9 % (11.0-16.0); White Blood Count 5.9 X10*3/uL (4.8-10.8)
[2023-04-23 15:47] LABS: Alanine Aminotransferase 11 U/L (0-31); Albumin Level 4.1 g/dL (3.5-5.0); Alkaline Phosphatase 114 U/L (39-117); Anion Gap 14 (12-20); Aspartate Amino Transferase 11 U/L (5-31); Bilirubin Total 0.3 mg/dL (0.0-1.0); Blood Urea Nitrogen 31 mg/dL (9-16); Calcium 9.4 mg/dL (8.4-10.2); Carbon Dioxide 23 mmol/L (22-29); Chloride 108 mmol/L (96-108); Creatinine Clr Calc Pharmacy 19.4; Estimated Glomerular Filt Rate 26; Glucose Random 206 mg/dL (60-115); Potassium 4.7 mmol/L (3.3-5.1); Sodium 140 mmol/L (135-145); Total Protein 7.5 g/dL (6.5-8.0)
[2023-04-23 15:54] LABS: Troponin-I High Sensitivity 3.2 ng/L (<3.5-17.0)
[2023-04-23] MEDS: Magnesium Hydrox/Alum Hydrox 30 ML ORAL.SUSP PO (19:26)
[2023-04-23] MEDS: Lidocaine HCl Viscous 2 % 15 ML SOLUTION MUCOUS MEM (19:27)
--- NOTE | 2023-04-23 19:44 | MHC.EDTECH ---
Pt placed on a personnel monitor by this tech
[2023-04-23 19:55] VITALS: BP 157/88; PULSE 89; RESP 23; TEMP 36.6; O2SAT 93
--- NOTE | 2023-04-23 20:02 | PC.NURSE ---
C/o wheezing w/ hx of asthma. Airway patent. Lung sounds diffusely clear. +tachypnea RR 25-26. Spo2 90% RA.
[2023-04-23 20:09] LABS: Troponin-I High Sensitivity 24.2 ng/L (<3.5-17.0)
[2023-04-23] MEDS: Albuterol/Iprat 2.5/0.5MG 3 ML AMPUL.NEB INHALE (20:09)
[2023-04-23 20:11] VITALS: PULSE 97; RESP 25; O2SAT 96
[2023-04-23 21:43] VITALS: BP 166/90; PULSE 93; RESP 20; O2SAT 99
--- NOTE | 2023-04-23 22:25 | ECG_ITS ---
Test Reason : cp Blood Pressure : / mmHG Vent. Rate : 080 BPM Atrial Rate : 080 BPM P-R Int : 160 ms QRS Dur : 070 ms QT Int : 392 ms P-R-T Axes : 042 023 114 degrees QTc Int : 452 ms Normal sinus rhythm Low voltage QRS ST & T wave abnormality, consider anterolateral ischemia Abnormal ECG When compared with ECG of 23-APR-2023 15:14, No significant changes seen Referred By: Jameson Harrison Electronically Signed By:TREVON CHEEMA
[2023-04-23 22:41] VITALS: BP 150/86; PULSE 82; RESP 20
[2023-04-23] MEDS: 0.9 % Sodium Chloride 1,000 ML 999 ML IV (22:47)
[2023-04-23] MEDS: ondansetron HCL 4 MG/2 ML VIAL IVPUSH (22:48)
[2023-04-23] MEDS: Nitroglycerin 2 % Oint 1 GM Packet 1 INCH TRANSDERMA (22:49)
[2023-04-23] MEDS: Morphine Sulfate 2 MG/ML CARTRIDGE IVPUSH (22:49)
[2023-04-23 23:07] LABS: Troponin-I High Sensitivity 864.4 ng/L (<3.5-17.0)
[2023-04-23] MEDS: Heparin Sodium,Porcine 5,000 UNIT/ML VIAL 4000 UNIT IVPUSH (23:15)
[2023-04-23] MEDS: Aspirin 81 MG TAB.CHEW 162 MG PO (23:16)
[2023-04-23] MEDS: Ticagrelor 90 MG TABLET 180 MG PO (23:16)
[2023-04-23 23:24] LABS: INTERNATIONAL NORM RATIO 1.1 (0.9-1.1); Prothrombin Time 13.3 SEC (11.1-13.3)
[2023-04-23 23:26] LABS: Partial Thromboplastin Time 28.7 SEC (26.0-36.8)
[2023-04-23] MEDS: Heparin Sodium,Porcine/1/2NS 25,000 UNIT/250 ML IV.SOLN 8.2 UNIT IVCONT (23:41)
[2023-04-23 23:44] VITALS: BP 170/88; PULSE 82; RESP 18; O2SAT 97
--- NOTE | 2023-04-23 23:49 | PC.NURSE ---
First call to [facility] at this time. consent to transfer signed by son at bedside.
--- NOTE | 2023-04-23 23:54 | PC.NURSE ---
Report given to Doug SCHOFIELD at [facility].
--- NOTE | 2023-04-24 00:02 | PC.NURSE ---
Patient still reporting discomfort. Plan at this time is to start nitro gtt.
[2023-04-24 00:17] VITALS: BP 161/79; PULSE 85
[2023-04-24] MEDS: Nitroglycerin/D5W 100 MG/250 ML INFUS..BTL IVCONT (00:17)
[2023-04-24 00:21] VITALS: BP 158/96; PULSE 86; RESP 18; O2SAT 96
[2023-04-24 00:31] VITALS: BP 158/96; PULSE 86; RESP 18; TEMP -17.7; TEMP 0; O2SAT 96
== END 2023-04-24 00:32 | disposition short-term general hospital (02) ==
PROVIDERS: Physician Assistant Medical; Emergency Provider Internal Medicine; PCP Family Medicine
DX: I21.4 Non-ST elevation (NSTEMI) myocardial infarction (principal); I10 Essential (primary) hypertension; E11.9 Type 2 diabetes mellitus without complications; J44.9 Chronic obstructive pulmonary disease, unspecified
CPT/HCPCS: 36415; 71046; 71250; 80053; 84484; 85025; 85610; 85730; 93005; 96374; 96375; 99285; J1644; J2270; J2305; J2405

== ENCOUNTER → 2023-04-23 14:58 | Outpatient (BNV) | payer OTHER, SELFPAY | PROVIDERS: Emergency Provider Internal Medicine; PCP Family Medicine; Visit Provider Internal Medicine | DX: R07.9 Chest pain, unspecified (principal) | CPT/HCPCS: 93010 ==

== ENCOUNTER 2023-05-26 10:37 | Emergency (ER) | payer OTHER, SELFPAY ==
--- NOTE | 2023-05-26 10:51 | ED_ITS ---
HPI - CPR General Chief Complaint: Cardiac Arrest/CPR Stated Complaint: CARDIAC ARREST FROM SNF PER EMS Time Seen by Provider: 05/26/23 10:40 Source: family, EMS, RN notes reviewed and old records reviewed Mode of arrival: EMS Limitations: other (Cardiac arrest) History of Present Illness HPI narrative: 73-year-old female history of NSTEMI on 04/23/23, HTN, COPD, T2 DM, came in from care home reportedly by EMS patient was with her family when she collapsed found to be in asystole CPR was started shortly after by nursing staff and 911 was called on arrival patient was in VFib advised to shock 200 Lexi x1 the patient received seven rounds of 1 mg epinephrine with no response. Patient was transported with CPR in progress with Dony, on arrival to the ED patient was still in asystole with no pulse received 2 rounds of epinephrine 1 mg each, and 1 amp of bicarb, fingerstick was 206, patient was intubated, code was terminated at 10:45 a.m. The case was discussed with a me and was declined Family were notified. Related Data Home Medications ?Medication ?Instructions ?Recorded ?Confirmed aspirin 81 mg tablet,delayed 81 mg PO QAM 04/23/20 01/15/23 release atorvastatin 40 mg tablet 40 mg PO BEDTIME 04/23/20 02/02/22 blood sugar diagnostic #10 ea 04/23/20 02/02/22 carvedilol 12.5 mg tablet 18.75 mg PO BID 04/23/20 02/02/22 lancets 33 gauge #100 ea 04/23/20 02/02/22 lisinopril 10 mg tablet 10 mg PO QAM 04/23/20 02/02/22 memantine 10 mg tablet 10 mg PO BID 04/23/20 02/02/22 albuterol sulfate 90 mcg/actuation 2 puff PO Q4-6H PRN dyspnea 05/27/20 02/02/22 aerosol inhaler ferrous gluconate 324 mg (38 mg 1 tab PO BID 12/28/20 01/15/23 iron) tablet magnesium chloride 71.5 mg 1 tab PO BID 12/28/20 02/02/22 (magnesium chloride) tablet,delayed release (Slow-Mag) multivitamin with folic acid 400 1 tab PO BEDTIME 01/17/21 02/02/22 mcg tablet (Daily-Riley (with folic acid)) acetaminophen 500 mg tablet 500 mg PO DAILY PRN Pain 08/23/21 02/02/22 cyanocobalamin (vitamin B-12) 1,000 mcg PO DAILY 10/31/22 1,000 mcg tablet empagliflozin 10 mg tablet 10 mg PO DAILY 02/14/23 (Jardiance) glipizide 10 mg tablet 10 mg PO BID 02/14/23 metformin 1,000 mg tablet 1,000 mg PO DAILY 02/14/23 Previous Rx's ?Medication ?Instructions ?Recorded mirabegron 25 mg tablet,extended 25 mg PO DAILY 90 days #90 tabs 02/02/22 release 24 hr (Myrbetriq) famotidine 20 mg tablet 20 mg PO BEDTIME #60 tabs 02/14/23 methylcellulose (laxative) 500 mg 1,000 mg (2 x 500 mg) PO BID #120 02/14/23 tablet (Fiber Laxative tabs (methylcellulose)) pantoprazole 40 mg tablet,delayed 40 mg PO DAILY #30 tabs 02/14/23 release Allergies Allergy/AdvReac Type Severity Reaction Status Date / Time No Known Allergies Allergy Mild NKA Verified 02/14/23 13:21 Review of Systems Review of Systems: Yes Unobtainable due to mental condition PMFSH Past Medical History Medical History Chronic renal insufficiency Anemia Abdominal hyperesthesia Diabetic neuropathy Osteoarthritis Depression History of kidney stones Scoliosis of thoracolumbar spine Varicose vein of leg GERD (gastroesophageal reflux disease) Osteopenia COPD (chronic obstructive pulmonary disease) Asthma Hypomagnesemia DM2 (diabetes mellitus, type 2) HTN (hypertension) PAD (peripheral artery disease) Urinary incontinence Thalamic pain syndrome Liver mass Iron deficiency anemia secondary to inadequate dietary iron intake Surgical History Hx of colonoscopy History of angioplasty of peripheral vessel History of laparoscopic appendectomy Hx of section Hx of bilateral cataract extraction History of cholecystectomy Family History Family History Daughter Diabetes Brother Heart problem Mother Heart problem Father Asthma Other No family history of cancer Social History Social History Household Members: Children Housing: Apartment Are you a primary nurse behavioral health care to a significant other at home: No Do you presently have visiting nurse or other home services: No Alcohol intake: former Patient Tobacco Use Status: Never used Tobacco Advance Directives: No Advance Directives Information Provided: Yes service: No Current occupational status: disabled Physical Exam Vital Signs: Vital Signs: Vital signs is non obtainable due to cardiac arrest General: Unresponsive HEENT: Pupil is 4 mm dilated bilaterally, no head injury or trauma, no cervical injury or trauma. Chest: No chest trauma. Lungs: Intubated with good chest rising. CV: Asystole, no pulse. Abdomen : Soft, no trauma. Back: No obvious trauma or injury. Neuro exam: Pupil is 4 mm nonreactive bilaterally, unresponsive. Course Reevaluation(s) Reevaluation #1: Cardiac arrest probably secondary to myocardial infarction and acute hypotension. Case declined by EMILIE case [id number]. Medical Decision Making Differential Diagnosis Differential Diagnoses: The differential diagnosis associated with the presentation includes (Dysrhythmia, asystole, hypo glycemia) Admission/Observation Consideration of admission/observation: Escalation of care including admission/observation considered Lab Data MDM Lab Attestation statement: I reviewed the patient's lab results. Labs: Lab Results 05/26/23 Range/Units 10:40 POC Glucose 206 H (60-115) mg/dL Chronic Conditions Patient?s care impacted by: Diabetes and Hypertension Critical Care Time Critical Care Time Critical Care Time: Yes Total Critical Care Time: 30 Attestation: The patient was critically ill with a high probability of imminent or life- threatening deterioration. I spent greater than 30 minutes of discontinuous time evaluating the patient, delivering critical care at the bedside, discussing evaluating data with consultants. Critical care time does not include time spent performing separately billable procedures or teaching. Time spent performing critical care was 30 minutes. Discharge Plan Discharge Clinical Impression: Cardiac arrest Patient Disposition: Prescriptions: No Action albuterol sulfate 90 mcg/actuation HFA aerosol inhaler 2 puff PO Q4-6H PRN (Reason: dyspnea) ferrous gluconate 324 mg (38 mg iron) tablet 1 tab PO BID Slow-Mag 71.5 mg tablet,delayed release (DR/EC) 1 tab PO BID (DME) lancets 33 gauge misc See Rx Instructions Not Applicable TID Qty: 100 Rx Instructions: As directed memantine 10 mg tablet 10 mg PO BID (DME) blood sugar diagnostic Strip See Rx Instructions Not Applicable TID Qty: 10 Rx Instructions: As directed lisinopril 10 mg tablet 10 mg PO QAM aspirin 81 mg tablet,delayed release (DR/EC) 81 mg PO QAM carvedilol 12.5 mg tablet 18.75 mg PO BID atorvastatin 40 mg tablet 40 mg PO BEDTIME multivitamin with folic acid [Daily-Riley (with folic acid)] 400 mcg tablet 1 tab PO BEDTIME Myrbetriq 25 mg tablet extended release 24 hr 25 mg PO DAILY 90 Days Qty: 90 3RF acetaminophen 500 mg tablet 500 mg PO DAILY PRN (Reason: Pain) metformin 1,000 mg tablet 1,000 mg PO DAILY cyanocobalamin (vitamin B-12) 1,000 mcg tablet 1,000 mcg PO DAILY glipizide 10 mg tablet 10 mg PO BID Jardiance 10 mg tablet 10 mg PO DAILY pantoprazole 40 mg tablet,delayed release (DR/EC) 40 mg PO DAILY Qty: 30 6RF famotidine 20 mg tablet 20 mg PO BEDTIME Qty: 60 6RF Fiber Laxative(methylcellulos) 500 mg tablet 1,000 mg PO BID Qty: 120 6RF Print Language: Libyan
[2023-05-26 10:53] LABS: Glucose, Whole Blood 206 mg/dL (60-115)
--- NOTE | 2023-05-26 10:57 | MHC.EDTECH ---
TIME OF : 10:45AM PER NOA [place]CHO[place] @ 10:54AM CALL PLACED TO OIL REFINER OFFICE, JENNIFER ANSWERS, TAKES CALL BACK NUMBER, AND SAYS SHE NEEDS TO CALL BACK SHE IS ON THE OTHER FOR ANOTHER CASE
--- NOTE | 2023-05-26 11:11 | PC.NURSE ---
see paper documentation
--- NOTE | 2023-05-26 11:11 | PC.NURSE ---
[facility] notified and declined. shravan case# [id number]
--- NOTE | 2023-05-26 11:28 | MHC.EDTECH ---
@11:[address] MATHEWS TELLS THIS CALL CENTER PROFESSIONAL THAT THE ME OFFICE DECLINES THIS CASE AND GIVES
--- NOTE | 2023-05-26 11:41 | PC.NURSE ---
Per MD Leno ALLEN declined case #[id number]- pt was cleaned, ET tube removed- family at beside
--- NOTE | 2023-05-26 11:53 | MHC.EDTECH ---
FAMILY LEAVES @ 11:53AM PER SHAPER SET UP OPERATOR
--- NOTE | 2023-05-26 12:49 | PC.NURSE ---
spoke with pt Dtr Ayleen with restaurant host/hostess, no home selected at this time, advised to call back once one is selected- US aware
--- NOTE | 2023-05-26 14:16 | PC.NURSE ---
[place] [facility] [place]
--- NOTE | 2023-05-28 12:46 | PC.NURSE ---
FAMILY STOPPED INTO THE ED TO LET THE HOSPITAL KNOW THAT THEY ARE WORKING ON ARRANGING FOR THE TO BE TRANSPORTED TO [place]. THEY HAVE SECURED A HOME IN [place] BUT DID NOT HAVE FURTHER DETAILS ON WHO WAS WOULD BE HANDLING THINGS LOCALLY.
== END 2023-05-26 14:16 | disposition expired ==
PROVIDERS: Emergency Provider Emergency Medicine; PCP Family Medicine
DX: I46.9 Cardiac arrest, cause unspecified (principal); E11.9 Type 2 diabetes mellitus without complications; I10 Essential (primary) hypertension; J44.9 Chronic obstructive pulmonary disease, unspecified; Z79.82 Long term (current) use of aspirin; Z79.02 Long term (current) use of antithrombotics/antiplatelets; Z79.899 Other long term (current) drug therapy; Z79.84 Long term (current) use of oral hypoglycemic drugs
CPT/HCPCS: 82947; 96374; 96375; 99282; 99285; J0171; J0282

== ENCOUNTER → 2023-05-26 | Outpatient (RCR) | payer MEDICARE, SELFPAY ==
[2020-10-15 13:25] VITALS: BP 191/80; PULSE 68; RESP 14; TEMP 36.3; O2SAT 96; BMI 43.0
[2020-10-15 14:18] LABS: MANUAL DIFF FLAG NO
[2020-10-15 14:20] LABS: Basophils Percent Auto 0.7 % (0-2); Eosinophils Absolute Auto 0.1 X10*3/uL (0.0-0.4); Eosinophils Percent Auto 1.3 % (0-4); Hematocrit 32.1 % (37-47); Imm Gran Abs Auto 0.02 X10*3/uL (0.00-0.03); Imm Gran Pct Auto 0.3 % (0.0-0.4); Immature Retic Fraction 17.7 % (3.0-15.9); Lymphocytes Absolute Auto 1.8 X10*3/uL (1.2-4.9); Lymphocytes Percent Auto 29.7 % (20-40); Mean Corpuscular HGB Conc 31.2 g/dl (31.0-35.0); Mean Corpuscular Hemoglobin 27.1 pg (27.0-33.0); Mean Platelet Volume 10.2 fL (9.4-12.3); Monocytes Absolute Auto 0.4 X10*3/uL (0.1-1.2); Monocytes Percent Auto 6.7 % (2-11); Neutrophils Absolute Auto 3.7 X10*3/uL (2.0-8.3); Neutrophils Percent Auto 61.3 % (45-73); Platelet Count 234 X10*3/uL (160-400); Red Blood Count 3.69 X10*6/uL (4.20-5.50); Red Cell Distribution Width 14.9 % (11.0-16.0); Retic HGB Equivalent 29.3 pg (30.0-35.0); Reticulocyte Percent 1.6 % (0.5-1.8); Reticulocytes Absolute 0.059 X10*6/uL (0.026-0.095)
[2020-10-15 14:43] LABS: Alanine Aminotransferase 12 U/L (0-31); Albumin Level 4.3 g/dL (3.5-5.0); Alkaline Phosphatase 85 U/L (39-117); Anion Gap 13 (12-20); Aspartate Amino Transferase 10 U/L (5-31); Bilirubin Total 0.4 mg/dL (0.0-1.0); Blood Urea Nitrogen 21 mg/dL (9-16); Carbon Dioxide 27 mmol/L (22-29); Chloride 106 mmol/L (96-108); Creatinine Clr Calc Pharmacy 27.4; Estimated Glomerular Filt Rate 40; Glucose Random 146 mg/dL (60-115); Iron 49 mcg/dL (30-160); Percent Iron Saturation 16 % (15-50); Potassium 5.1 mmol/L (3.3-5.1); Sodium 141 mmol/L (135-145); Total Iron Binding Capacity 312 mcg/dL (228-428); Total Protein 7.2 g/dL (6.5-8.0); Unsaturated Iron Binding 263 ug/dL
--- NOTE | 2020-10-15 14:55 | MHC.HEMONCMA ---
Patient came in for a consult today, states she is tired. Clinical summary was reviewed and updated. Patient had labs and will return in 6 weeks for a follow up. Brandon was present in the appt for interpretation.
[2020-10-15 15:07] LABS: Erythrocyte Sedimentation Rate 29 MM/HR (0-20)
[2020-10-15 15:18] LABS: Vitamin B12 1054 pg/mL (200-900)
--- NOTE | 2020-10-15 16:40 | PM.HEMONCPN ---
Medical Summary - Medical Summary Date of Service: 10/15/20 Chief complaint: Low blood counts Medical Summary: Diagnosis: Chronic normocytic anemia Anemia dating back to 2016 with hemoglobin around 10 gram/dL. Chronic renal insufficiency secondary to diabetes mellitus. No hematinic deficiencies. Interval History Interval history: Patient is here for evaluation of chronic anemia. Other than chronic fatigue she reports no new complaints such as loss of appetite, weight loss, nausea or change in bowel habits. Before 2014 her hemoglobin was above 12 gram/dL but since 2015 her hemoglobin has been 10 occasionally below that. This coincides with onset of her renal dysfunction. In 2011 her creatinine was 0.78, now it is 1.3 mg/dL on an average. She denies any recent infections or new medications. She has routine follow-up with GI has had previous colonoscopy. Review of Systems - Constitutional Reports as per HPI, Reports no additional constitutional complaints, Denies chills, Denies fatigue, Denies fever(s), Denies lack of energy, Reports malaise - Respiratory Reports no additional respiratory complaints - Gastrointestinal Reports no additional gastrointestinal complaints [facility] Medical History: Medical History (Last Reviewed 10/15/20 @ 13:29 by Carolina Rose) Abdominal hyperesthesia Asthma COPD (chronic obstructive pulmonary disease) Depression Diabetic neuropathy DM2 (diabetes mellitus, type 2) GERD (gastroesophageal reflux disease) History of kidney stones HTN (hypertension) Hypomagnesemia Iron deficiency anemia secondary to inadequate dietary iron intake Liver mass Osteoarthritis Osteopenia PAD (peripheral artery disease) Scoliosis of thoracolumbar spine Thalamic pain syndrome Urinary incontinence Varicose vein of leg Family History: Family History (Last Reviewed 10/15/20 @ 13:29 by Carolina Rose) Daughter Diabetes Brother Heart problem Mother Heart problem Father Asthma Surgical History: Surgical History (Last Reviewed 10/15/20 @ 13:29 by Carolina Rose) History of angioplasty of peripheral vessel History of cholecystectomy History of laparoscopic appendectomy Hx of bilateral cataract extraction Hx of section Social History: Social History (Last Updated 10/15/20 @ 13:30 by Carolina Rose) Living Situation History: Household Members: Children Alcohol History: Alcohol intake: former Alcohol History Details: Alcohol intake frequency: does not drink Tobacco History: Patient Tobacco Use Status: Never used Tobacco Substance Use History: Use of substances other than those prescribed or required for medical reasons: No Occupation Assessmet: Current occupational status: disabled Oncology Screenings - ECOG Performance Status ECOG Performance Status: 1 Home Medications and Allergies Home Medications Medication Instructions Recorded Confirmed Type acetaminophen 500 mg tablet 500 mg PO DAILY 04/23/20 10/15/20 History aspirin 81 mg tablet,delayed 81 mg PO QAM 04/23/20 10/15/20 History release atorvastatin 40 mg tablet 40 mg PO BEDTIME 04/23/20 10/15/20 History blood sugar diagnostic #10 ea 04/23/20 10/15/20 History carvedilol 12.5 mg tablet 12.5 mg PO DAILY 04/23/20 10/15/20 History cyanocobalamin (vitamin B-12) 1,000 mcg PO DAILY 04/23/20 10/15/20 History 1,000 mcg tablet ferrous sulfate 325 mg (65 mg 325 mg PO BID 04/23/20 10/15/20 History iron) tablet fluticasone propionate 220 1 puff PO BID 04/23/20 10/15/20 History mcg/actuation HFA aerosol inhaler glipizide 2.5 mg tablet, extended 2.5 mg PO DAILY 04/23/20 10/15/20 History release 24 hr lancets 33 gauge #100 ea 04/23/20 10/15/20 History lisinopril 10 mg tablet 10 mg PO QAM 04/23/20 10/15/20 History magnesium oxide 400 mg (241.3 mg 800 mg PO QID 04/23/20 10/15/20 History magnesium) tablet memantine 10 mg tablet 10 mg PO BID 04/23/20 10/15/20 History metformin 850 mg tablet 850 mg PO BID 04/23/20 10/15/20 History multivitamin 1 tab PO BEDTIME 04/23/20 10/15/20 History albuterol sulfate 90 mcg/actuation 2 puff PO Q4-6H PRN 05/27/20 10/15/20 History aerosol inhaler Allergies Allergy/AdvReac Type Severity Reaction Status Date / Time No Known Allergies Allergy Mild NKA Verified 10/15/20 13:30 Exam Vital signs: Vital Signs Temp 97.3 F 10/15/20 13:25 Pulse 68 10/15/20 13:25 Resp 14 10/15/20 13:25 BP 191/80 H 10/15/20 13:25 Pulse Ox 96 10/15/20 13:25 Intake & Output 10/14/20 10/15/20 10/15/20 18:59 06:59 18:59 Other: Weight 72.2 kg Weight in Grams 11665 Weight 72.2 kg Body Mass Index 43.0 - Constitutional Present: no acute distress, cooperative - Routine HEENT Exam Head: Present: normal inspection Eye: Present: EOMI, PERRL - Routine Neck Exam Present: full ROM. Absent: lymphadenopathy - Routine Respiratory Exam Present: CTAB - Routine Cardiovascular Exam Cardiovascular: Present: S1, S2 - Routine Abdominal Exam Present: soft - Routine Skin Exam Present: intact. Absent: cyanosis Data - Labs CBC & Chem 7: 10/15/20 14:05 10/15/20 14:05 Labs: 10/15/20 14:05 Complete Blood Count Auto Diff Routine Comprehensive Met. Panel Routine ESR [Erythrocyte Sedimentation Rate] Routine IRON PROFILE Routine Reticulocyte Count Routine Vitamin B12 Routine Laboratory Last Values WBC 6.0 X10*3/uL (4.8-10.8) 10/15/20 14:05 RBC 3.69 X10*6/uL (4.20-5.50) L 10/15/20 14:05 Hgb 10.0 g/dl (12.0-16.0) L 10/15/20 14:05 Hct 32.1 % (37-47) L 10/15/20 14:05 MCV 87.0 fL (80-98) 10/15/20 14:05 MCH 27.1 pg (27.0-33.0) 10/15/20 14:05 MCHC 31.2 g/dl (31.0-35.0) 10/15/20 14:05 RDW 14.9 % (11.0-16.0) 10/15/20 14:05 Plt Count 234 X10*3/uL (160-400) 10/15/20 14:05 MPV 10.2 fL (9.4-12.3) 10/15/20 14:05 Immature Gran % (Auto) 0.3 % (0.0-0.4) 10/15/20 14:05 Neut % (Auto) 61.3 % (45-73) 10/15/20 14:05 Lymph % (Auto) 29.7 % (20-40) 10/15/20 14:05 [place] % (Auto) 6.7 % (2-11) 10/15/20 14:05 Eos % (Auto) 1.3 % (0-4) 10/15/20 14:05 Baso % (Auto) 0.7 % (0-2) 10/15/20 14:05 Lymph # (Auto) 1.8 X10*3/uL (1.2-4.9) 10/15/20 14:05 [place] # (Auto) 0.4 X10*3/uL (0.1-1.2) 10/15/20 14:05 Eos # (Auto) 0.1 X10*3/uL (0.0-0.4) 10/15/20 14:05 Baso # (Auto) 0.0 X10*3/uL (0.0-0.2) 10/15/20 14:05 Abs Immat Gran (auto) 0.02 X10*3/uL (0.00-0.03) 10/15/20 14:05 Absolute Neuts (auto) 3.7 X10*3/uL (2.0-8.3) 10/15/20 14:05 Absolute Nucleated RBC 0.000 X10*3/uL (0.0-0.012) 10/15/20 14:05 Nucleated RBC % (auto) 0.0 /100WBC (0.0-0.2) 10/15/20 14:05 ESR 29 MM/HR (0-20) H 10/15/20 14:05 Absolute Retic 0.059 X10*6/uL (0.026-0.095) 10/15/20 14:05 Percent Retic 1.6 % (0.5-1.8) 10/15/20 14:05 Immature Retic Fraction 17.7 % (3.0-15.9) H 10/15/20 14:05 Retic Hgb Equivalent 29.3 pg (30.0-35.0) L 10/15/20 14:05 Sodium 141 mmol/L (135-145) 10/15/20 14:05 Potassium 5.1 mmol/L (3.3-5.1) 10/15/20 14:05 Chloride 106 mmol/L (96-108) 10/15/20 14:05 Carbon Dioxide 27 mmol/L (22-29) 10/15/20 14:05 Anion Gap 13 (12-20) 10/15/20 14:05 BUN 21 mg/dL (9-16) H 10/15/20 14:05 Creatinine 1.32 mg/dL (0.5-1.4) 10/15/20 14:05 Estim Creat Clear Calc 27.4 10/15/20 14:05 Estimated GFR 40 10/15/20 14:05 Random Glucose 146 mg/dL (60-115) H 10/15/20 14:05 Calcium 10.0 mg/dL (8.4-10.2) 10/15/20 14:05 Iron 49 mcg/dL (30-160) 10/15/20 14:05 TIBC 312 mcg/dL (228-428) 10/15/20 14:05 % Saturation 16 % (15-50) 10/15/20 14:05 Unsat Iron Binding 263 ug/dL 10/15/20 14:05 Total Bilirubin 0.4 mg/dL (0.0-1.0) 10/15/20 14:05 AST 10 U/L (5-31) 10/15/20 14:05 ALT 12 U/L (0-31) 10/15/20 14:05 Alkaline Phosphatase 85 U/L (39-117) 10/15/20 14:05 Total Protein 7.2 g/dL (6.5-8.0) 10/15/20 14:05 Albumin 4.3 g/dL (3.5-5.0) 10/15/20 14:05 Vitamin B12 1054 pg/mL (200-900) H 10/15/20 14:05 Assessment and Plan Patient Active problem list reviewed?: Yes (1) Anemia Status: Chronic Assessment and plan: 1. This is a pleasant 70-year-old woman with chronic normocytic anemia dating back to 2016. Her hemoglobin has remained stable between 9-11 gram/dL over the years. She has chronic renal insufficiency secondary to diabetes mellitus. She had vitamin B12 deficiency, she is on oral supplementation and her levels are now adequate. She has no constitutional symptoms. She denies any symptoms suggestive of gastrointestinal blood losses. There is no evidence of hemolysis or medication induced anemia. Normal serum protein electrophoresis and immunofixation studies in 2019. Depending on hematological testing, further interventions such as bone marrow aspiration /biopsy can be performed if necessary. follow-up in 1 month. - Time Spent With Patient Time Spent with Patient (in minutes): 30
--- NOTE | 2020-11-22 13:21 | P.PNHO_ITS ---
Medical Summary - Medical Summary Date of Service: 11/22/20 Chief complaint: Follow-up Medical Summary: Diagnosis: Chronic normocytic anemia Anemia dating back to 2016 with hemoglobin around 10 gram/dL. Chronic renal insufficiency secondary to diabetes mellitus. No hematinic deficiencies. Before 2014 her hemoglobin was above 12 gram/dL but since 2015 her hemoglobin has been 10 occasionally below that. This coincides with onset of her renal dysfunction. In 2011 her creatinine was 0.78, now it is 1.3 mg/dL. Interval History Interval history: Patient is here for evaluation of chronic anemia. Other than chronic fatigue she reports no new complaints such as loss of appetite, weight loss, nausea or change in bowel habits. average. She denies any recent infections or new medications. She has routine follow-up with GI has had previous colonoscopy. [facility] Medical History: Medical History (Last Reviewed 11/22/20 @ 13:31 by Carolina Rose) Abdominal hyperesthesia Asthma COPD (chronic obstructive pulmonary disease) Depression Diabetic neuropathy DM2 (diabetes mellitus, type 2) GERD (gastroesophageal reflux disease) History of kidney stones HTN (hypertension) Hypomagnesemia Iron deficiency anemia secondary to inadequate dietary iron intake Liver mass Osteoarthritis Osteopenia PAD (peripheral artery disease) Scoliosis of thoracolumbar spine Thalamic pain syndrome Urinary incontinence Varicose vein of leg Family History: Family History (Last Reviewed 11/22/20 @ 13:31 by Carolina Rose) Daughter Diabetes Brother Heart problem Mother Heart problem Father Asthma Surgical History: Surgical History (Last Reviewed 11/22/20 @ 13:31 by Carolina Rose) History of angioplasty of peripheral vessel History of cholecystectomy History of laparoscopic appendectomy Hx of bilateral cataract extraction Hx of section Social History: Social History (Last Reviewed 11/22/20 @ 13:31 by Carolina Rose) Living Situation History: Household Members: Children Alcohol History: Alcohol intake: former Alcohol History Details: Alcohol intake frequency: does not drink Tobacco History: Patient Tobacco Use Status: Never used Tobacco Substance Use History: Use of substances other than those prescribed or required for medical reasons : No Occupation Assessmet: Current occupational status: disabled Home Medications and Allergies Home Medications Medication Instructions Recorded Confirmed Type acetaminophen 500 mg tablet 500 mg PO DAILY 04/23/20 11/22/20 History aspirin 81 mg tablet,delayed 81 mg PO QAM 04/23/20 11/22/20 History release atorvastatin 40 mg tablet 40 mg PO BEDTIME 04/23/20 11/22/20 History blood sugar diagnostic #10 ea 04/23/20 11/22/20 History carvedilol 12.5 mg tablet 12.5 mg PO DAILY 04/23/20 11/22/20 History cyanocobalamin (vitamin B-12) 1,000 mcg PO DAILY 04/23/20 11/22/20 History 1,000 mcg tablet ferrous sulfate 325 mg (65 mg 325 mg PO BID 04/23/20 11/22/20 History iron) tablet fluticasone propionate 220 1 puff PO BID 04/23/20 11/22/20 History mcg/actuation HFA aerosol inhaler glipizide 2.5 mg tablet, extended 2.5 mg PO DAILY 04/23/20 11/22/20 History release 24 hr lancets 33 gauge #100 ea 04/23/20 11/22/20 History lisinopril 10 mg tablet 10 mg PO QAM 04/23/20 11/22/20 History magnesium oxide 400 mg (241.3 mg 800 mg PO QID 04/23/20 11/22/20 History magnesium) tablet memantine 10 mg tablet 10 mg PO BID 04/23/20 11/22/20 History metformin 850 mg tablet 850 mg PO BID 04/23/20 11/22/20 History multivitamin 1 tab PO BEDTIME 04/23/20 11/22/20 History albuterol sulfate 90 mcg/actuation 2 puff PO Q4-6H PRN 05/27/20 11/22/20 History aerosol inhaler Allergies Allergy/AdvReac Type Severity Reaction Status Date / Time No Known Allergies Allergy Mild NKA Verified 11/22/20 13:31 Exam Vital signs: Vital Signs Temp 97.3 F 10/15/20 13:25 Pulse 68 10/15/20 13:25 Resp 14 10/15/20 13:25 BP 191/80 H 10/15/20 13:25 Pulse Ox 96 10/15/20 13:25 Weight 72.2 kg Body Mass Index 43.0 - Constitutional Present: no acute distress, cooperative - Routine HEENT Exam Head: Present: normal inspection - Routine Neck Exam Present: full ROM. Absent: lymphadenopathy - Routine Respiratory Exam Present: CTAB - Routine Cardiovascular Exam Cardiovascular: Present: S1, S2 - Routine Abdominal Exam Present: soft - Routine Skin Exam Present: intact. Absent: cyanosis Data - Labs CBC & Chem 7: 11/22/20 13:41 10/15/20 14:05 Labs: 10/15/20 14:05 Complete Blood Count Auto Diff Routine Comprehensive Met. Panel Routine ESR [Erythrocyte Sedimentation Rate] Routine IRON PROFILE Routine Reticulocyte Count Routine Vitamin B12 Routine Laboratory Last Values WBC 6.0 X10*3/uL (4.8-10.8) 10/15/20 14:05 RBC 3.69 X10*6/uL (4.20-5.50) L 10/15/20 14:05 Hgb 10.0 g/dl (12.0-16.0) L 10/15/20 14:05 Hct 32.1 % (37-47) L 10/15/20 14:05 MCV 87.0 fL (80-98) 10/15/20 14:05 MCH 27.1 pg (27.0-33.0) 10/15/20 14:05 MCHC 31.2 g/dl (31.0-35.0) 10/15/20 14:05 RDW 14.9 % (11.0-16.0) 10/15/20 14:05 Plt Count 234 X10*3/uL (160-400) 10/15/20 14:05 MPV 10.2 fL (9.4-12.3) 10/15/20 14:05 Immature Gran % (Auto) 0.3 % (0.0-0.4) 10/15/20 14:05 Neut % (Auto) 61.3 % (45-73) 10/15/20 14:05 Lymph % (Auto) 29.7 % (20-40) 10/15/20 14:05 [place] % (Auto) 6.7 % (2-11) 10/15/20 14:05 Eos % (Auto) 1.3 % (0-4) 10/15/20 14:05 Baso % (Auto) 0.7 % (0-2) 10/15/20 14:05 Lymph # (Auto) 1.8 X10*3/uL (1.2-4.9) 10/15/20 14:05 [place] # (Auto) 0.4 X10*3/uL (0.1-1.2) 10/15/20 14:05 Eos # (Auto) 0.1 X10*3/uL (0.0-0.4) 10/15/20 14:05 Baso # (Auto) 0.0 X10*3/uL (0.0-0.2) 10/15/20 14:05 Abs Immat Gran (auto) 0.02 X10*3/uL (0.00-0.03) 10/15/20 14:05 Absolute Neuts (auto) 3.7 X10*3/uL (2.0-8.3) 10/15/20 14:05 Absolute Nucleated RBC 0.000 X10*3/uL (0.0-0.012) 10/15/20 14:05 Nucleated RBC % (auto) 0.0 /100WBC (0.0-0.2) 10/15/20 14:05 ESR 29 MM/HR (0-20) H 10/15/20 14:05 Absolute Retic 0.059 X10*6/uL (0.026-0.095) 10/15/20 14:05 Percent Retic 1.6 % (0.5-1.8) 10/15/20 14:05 Immature Retic Fraction 17.7 % (3.0-15.9) H 10/15/20 14:05 Retic Hgb Equivalent 29.3 pg (30.0-35.0) L 10/15/20 14:05 Sodium 141 mmol/L (135-145) 10/15/20 14:05 Potassium 5.1 mmol/L (3.3-5.1) 10/15/20 14:05 Chloride 106 mmol/L (96-108) 10/15/20 14:05 Carbon Dioxide 27 mmol/L (22-29) 10/15/20 14:05 Anion Gap 13 (12-20) 10/15/20 14:05 BUN 21 mg/dL (9-16) H 10/15/20 14:05 Creatinine 1.32 mg/dL (0.5-1.4) 10/15/20 14:05 Estim Creat Clear Calc 27.4 10/15/20 14:05 Estimated GFR 40 10/15/20 14:05 Random Glucose 146 mg/dL (60-115) H 10/15/20 14:05 Calcium 10.0 mg/dL (8.4-10.2) 10/15/20 14:05 Iron 49 mcg/dL (30-160) 10/15/20 14:05 TIBC 312 mcg/dL (228-428) 10/15/20 14:05 % Saturation 16 % (15-50) 10/15/20 14:05 Unsat Iron Binding 263 ug/dL 10/15/20 14:05 Total Bilirubin 0.4 mg/dL (0.0-1.0) 10/15/20 14:05 AST 10 U/L (5-31) 10/15/20 14:05 ALT 12 U/L (0-31) 10/15/20 14:05 Alkaline Phosphatase 85 U/L (39-117) 10/15/20 14:05 Total Protein 7.2 g/dL (6.5-8.0) 10/15/20 14:05 Albumin 4.3 g/dL (3.5-5.0) 10/15/20 14:05 Vitamin B12 1054 pg/mL (200-900) H 10/15/20 14:05 Assessment and Plan Patient Active problem list reviewed?: Yes (1) Anemia Status: Chronic Assessment and plan: 1. This is a pleasant 70-year-old woman with chronic normocytic anemia dating back to 2016. Her hemoglobin has remained stable between 9-11 gram/dL over the years. She has chronic renal insufficiency secondary to diabetes mellitus. She had vitamin B12 deficiency, she is on oral supplementation and her levels are now adequate. She has no constitutional symptoms. She denies any symptoms suggestive of gastrointestinal blood losses. There is no evidence of hemolysis or medication induced anemia. Normal serum protein electrophoresis and immunofixation studies in 2019. CBC today is stable her hemoglobin is slightly below 10 gram/dL. I discussed performing bone marrow aspiration/biopsy with her. She will think about it. follow-up in 1 month. - Time Spent With Patient Time Spent with Patient (in minutes): 15
[2020-11-22 13:28] VITALS: BP 139/62; PULSE 70; RESP 14; TEMP 36.3; O2SAT 100; BMI 42.8
[2020-11-22 13:49] LABS: Hematocrit 30.3 % (37-47); Hemoglobin 9.5 g/dl (12.0-16.0); Immature Retic Fraction 14.6 % (3.0-15.9); Mean Corpuscular HGB Conc 31.4 g/dl (31.0-35.0); Mean Corpuscular Hemoglobin 27.3 pg (27.0-33.0); Mean Corpuscular Volume 87.1 fL (80-98); Platelet Count 218 X10*3/uL (160-400); Red Blood Count 3.48 X10*6/uL (4.20-5.50); Red Cell Distribution Width 15.1 % (11.0-16.0); Retic HGB Equivalent 29.8 pg (30.0-35.0); Reticulocyte Percent 1.5 % (0.5-1.8); Reticulocytes Absolute 0.051 X10*6/uL (0.026-0.095); White Blood Count 5.8 X10*3/uL (4.8-10.8)
[2020-11-25 21:11] LABS: IgA 236 mg/dL (70-320); IgG 997 mg/dL (600-1540); IgM 27 mg/dL (50-300)
--- NOTE | 2020-12-28 13:41 | P.PNHO_ITS ---
Medical Summary - Medical Summary Date of Service: 12/28/20 Chief complaint: follow-up Medical Summary: Diagnosis: Chronic normocytic anemia Anemia dating back to 2016 with hemoglobin around 10 gram/dL. Chronic renal insufficiency secondary to diabetes mellitus. No hematinic deficiencies. Before 2014 her hemoglobin was above 12 gram/dL but since 2015 her hemoglobin has been 10 occasionally below that. This coincides with onset of her renal dysfunction. In 2011 her creatinine was 0.78, now it is 1.3 mg/dL. She has routine follow-up with GI has had previous colonoscopy Interval History Interval history: Patient is here for evaluation of chronic anemia. She is doing well and has no new complaints. She is accompanied by 2 of her daughters today. [facility] Medical History: Medical History (Last Reviewed 11/26/20 @ 13:01 by Olga Pat CMA) Abdominal hyperesthesia Asthma COPD (chronic obstructive pulmonary disease) Depression Diabetic neuropathy DM2 (diabetes mellitus, type 2) GERD (gastroesophageal reflux disease) History of kidney stones HTN (hypertension) Hypomagnesemia Iron deficiency anemia secondary to inadequate dietary iron intake Liver mass Osteoarthritis Osteopenia PAD (peripheral artery disease) Scoliosis of thoracolumbar spine Thalamic pain syndrome Urinary incontinence Varicose vein of leg Family History: Family History (Last Reviewed 11/26/20 @ 13:01 by Olga Pat CMA) Daughter Diabetes Brother Heart problem Mother Heart problem Father Asthma Surgical History: Surgical History (Last Reviewed 11/26/20 @ 13:01 by Olga Pat CMA) History of angioplasty of peripheral vessel History of cholecystectomy History of laparoscopic appendectomy Hx of bilateral cataract extraction Hx of section Social History: Social History (Last Reviewed 11/26/20 @ 13:01 by Olga Pat CMA) Living Situation History: Household Members: Children Alcohol History: Alcohol intake: former Alcohol History Details: Alcohol intake frequency: does not drink Tobacco History: Patient Tobacco Use Status: Never used Tobacco Occupation Assessmet: Current occupational status: disabled Oncology Screenings - ECOG Performance Status ECOG Performance Status: 1 Home Medications and Allergies Home Medications Medication Instructions Recorded Confirmed Type acetaminophen 500 mg tablet 500 mg PO DAILY 04/23/20 11/26/20 History aspirin 81 mg tablet,delayed 81 mg PO QAM 04/23/20 11/26/20 History release atorvastatin 40 mg tablet 40 mg PO BEDTIME 04/23/20 11/26/20 History blood sugar diagnostic #10 ea 04/23/20 11/26/20 History carvedilol 12.5 mg tablet 12.5 mg PO DAILY 04/23/20 11/26/20 History cyanocobalamin (vitamin B-12) 1,000 mcg PO DAILY 04/23/20 11/26/20 History 1,000 mcg tablet ferrous sulfate 325 mg (65 mg 325 mg PO BID 04/23/20 11/26/20 History iron) tablet fluticasone propionate 220 1 puff PO BID 04/23/20 11/26/20 History mcg/actuation HFA aerosol inhaler glipizide 2.5 mg tablet, extended 2.5 mg PO DAILY 04/23/20 11/26/20 History release 24 hr lancets 33 gauge #100 ea 04/23/20 11/26/20 History lisinopril 10 mg tablet 10 mg PO QAM 04/23/20 11/26/20 History magnesium oxide 400 mg (241.3 mg 800 mg PO QID 04/23/20 11/26/20 History magnesium) tablet memantine 10 mg tablet 10 mg PO BID 04/23/20 11/26/20 History metformin 850 mg tablet 850 mg PO BID 04/23/20 11/26/20 History multivitamin 1 tab PO BEDTIME 04/23/20 11/26/20 History albuterol sulfate 90 mcg/actuation 2 puff PO Q4-6H PRN 05/27/20 11/26/20 History aerosol inhaler Allergies Allergy/AdvReac Type Severity Reaction Status Date / Time No Known Allergies Allergy Mild NKA Verified 11/26/20 13:01 Exam Vital signs: Vital Signs Temp 97.3 F 11/22/20 13:28 Pulse 70 11/22/20 13:28 Resp 14 11/22/20 13:28 BP 139/62 11/22/20 13:28 Pulse Ox 100 11/22/20 13:28 Weight 71.9 kg Body Mass Index 42.8 - Constitutional Present: no acute distress, cooperative - Routine HEENT Exam Head: Present: normal inspection - Routine Neck Exam Present: full ROM. Absent: lymphadenopathy - Routine Respiratory Exam Present: CTAB - Routine Cardiovascular Exam Cardiovascular: Present: S1, S2 - Routine Abdominal Exam Present: soft - Routine Skin Exam Present: intact. Absent: cyanosis Data - Labs CBC & Chem 7: 12/28/20 14:11 12/28/20 14:16 Assessment and Plan Patient Active problem list reviewed?: Yes (1) Anemia Status: Chronic Assessment and plan: 1. This is a pleasant 70-year-old woman with chronic normocytic anemia dating back to 2016. Her hemoglobin has remained stable between 9-11 gram/dL over the years. She has chronic renal insufficiency secondary to diabetes mellitus. She had vitamin B12 deficiency, she is on oral supplementation and her levels are now adequate. She has no constitutional symptoms. She denies any symptoms suggestive of gastrointestinal blood losses. There is no evidence of hemolysis or medication induced anemia. Normal serum protein electrophoresis and immunofixation studies in 2019. CBC today is stable her hemoglobin is slightly below 10 gram/dL. I discussed performing bone marrow aspiration/biopsy with her. Her daughters were present during the interview today, the now willing to proceed with bone marrow biopsy. They would like the procedure under monitored anesthesia so she could be asleep during the procedure. This will be scheduled in the following days. I have advised her to stop aspirin 5 days before procedure. follow-up in 3 month. - Time Spent With Patient Time Spent with Patient (in minutes): 15
[2020-12-28 13:42] VITALS: BP 127/59; PULSE 79; RESP 17; TEMP 36.6; O2SAT 96; BMI 43.0
[2020-12-28 14:47] LABS: Basophils Percent Auto 0.6 % (0-2); Eosinophils Absolute Auto 0.1 X10*3/uL (0.0-0.4); Eosinophils Percent Auto 2.7 % (0-4); Hematocrit 29.9 % (37.0-47.0); Hemoglobin 9.5 g/dl (12.0-16.0); Imm Gran Abs Auto 0.01 X10*3/uL (0.00-0.03); Imm Gran Pct Auto 0.2 % (0.0-0.4); Lymphocytes Absolute Auto 1.6 X10*3/uL (1.2-4.9); Lymphocytes Percent Auto 33.7 % (20-40); MANUAL DIFF FLAG NO; Mean Corpuscular HGB Conc 31.8 g/dl (31.0-35.0); Mean Corpuscular Hemoglobin 27.3 pg (27.0-33.0); Mean Corpuscular Volume 85.9 fL (80.0-98.0); Mean Platelet Volume 10.7 fL (9.4-12.3); Monocytes Absolute Auto 0.4 X10*3/uL (0.1-1.2); Monocytes Percent Auto 9.1 % (2-11); Neutrophils Absolute Auto 2.6 x10*3/uL (2.0-8.3); Neutrophils Percent Auto 53.7 % (45-73); Platelet Count 223 X10*3/uL (160-400); Red Blood Count 3.48 X10*6/uL (4.20-5.50); Red Cell Distribution Width 15.2 % (11.0-16.0); White Blood Count 4.8 X10*3/uL (4.8-10.8)
[2020-12-28 15:10] LABS: Alanine Aminotransferase 12 U/L (0-31); Albumin Level 4.1 g/dL (3.5-5.0); Alkaline Phosphatase 82 U/L (39-117); Anion Gap 13 (12-20); Aspartate Amino Transferase 10 U/L (5-31); Bilirubin Total 0.2 mg/dL (0.0-1.0); Blood Urea Nitrogen 25 mg/dL (9-16); Calcium 9.3 mg/dL (8.4-10.2); Carbon Dioxide 22 mmol/L (22-29); Chloride 110 mmol/L (96-108); Creatinine Clr Calc Pharmacy 25.9; Estimated Glomerular Filt Rate 37; Glucose Random 172 mg/dL (60-115); Potassium 5.5 mmol/L (3.3-5.1); Sodium 139 mmol/L (135-145); Total Protein 6.8 g/dL (6.5-8.0)
--- NOTE | 2020-12-28 16:44 | MHC.HEMONC ---
Here for follow up with Dr Amaral. 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 Meds reviewed. Pt feeling well. Only c/o back pain with walking, which she has had for 2 years. Waiting for appointment for injection. Has agreed to bone marrow biopsy. Will schedule with OR.
--- NOTE | 2021-01-11 11:57 | HO.HEMONCPA ---
PA FOR CPT CODE 94000 REQUESTED. AWAITING DECISION
[2021-01-15 07:53] LABS: Bone Marrow SEE SEPARATE REPORT
--- NOTE | 2021-02-28 12:33 | PM.HEMONCPN ---
Medical Summary - Medical Summary Date of Service: 02/28/21 Chief complaint: follow-up Medical Summary: Diagnosis: Chronic normocytic anemia Anemia dating back to 2016 with hemoglobin around 10 gram/dL. Chronic renal insufficiency secondary to diabetes mellitus. No hematinic deficiencies. Before 2014 her hemoglobin was above 12 gram/dL but since 2015 her hemoglobin has been 10 occasionally below that. This coincides with onset of her renal dysfunction. In 2011 her creatinine was 0.78, now it is 1.3 mg/dL. She has routine follow-up with GI has had previous colonoscopy Interval History Interval history: Patient is here for follow-up. She is accompanied by her daughter. She is here to discuss results of bone marrow biopsy. This state that patient has been having diarrhea ever since she started taking sucralfate. Review of Systems - Constitutional Reports as per HPI, Reports no additional constitutional complaints - Cardiovascular Reports no additional cardiovascular complaints - Respiratory Reports no additional respiratory complaints [facility] Medical History: Medical History (Last Reviewed 02/28/21 @ 12:48 by Carolina Rose) Abdominal hyperesthesia Anemia Asthma Chronic renal insufficiency COPD (chronic obstructive pulmonary disease) Depression Diabetic neuropathy DM2 (diabetes mellitus, type 2) GERD (gastroesophageal reflux disease) History of kidney stones HTN (hypertension) Hypomagnesemia Iron deficiency anemia secondary to inadequate dietary iron intake Liver mass Osteoarthritis Osteopenia PAD (peripheral artery disease) Scoliosis of thoracolumbar spine Thalamic pain syndrome Urinary incontinence Varicose vein of leg Family History: Family History (Last Reviewed 02/28/21 @ 12:48 by Carolina Rose) Daughter Diabetes Brother Heart problem Mother Heart problem Father Asthma Surgical History: Surgical History (Last Reviewed 02/28/21 @ 12:48 by Carolina Rose) History of angioplasty of peripheral vessel History of cholecystectomy History of laparoscopic appendectomy Hx of bilateral cataract extraction Hx of section Hx of colonoscopy Social History: Social History (Last Updated 02/28/21 @ 12:48 by Carolina Rose) Living Situation History: Household Members: Children Alcohol History Details: 1. How often do you have a drink containing alcohol?: a. Never Tobacco History: Patient Tobacco Use Status: Never used Tobacco Substance Use History: Use of substances other than those prescribed or required for medical reasons: No Occupation Assessmet: Current occupational status: disabled Oncology Screenings - ECOG Performance Status ECOG Performance Status: 1 Home Medications and Allergies Home Medications Medication Instructions Recorded Confirmed Type acetaminophen 500 mg tablet 500 mg PO DAILY 04/23/20 02/28/21 History aspirin 81 mg tablet,delayed 81 mg PO QAM 04/23/20 02/28/21 History release atorvastatin 40 mg tablet 40 mg PO BEDTIME 04/23/20 02/28/21 History blood sugar diagnostic #10 ea 04/23/20 02/28/21 History carvedilol 12.5 mg tablet 18.75 mg PO BID 04/23/20 02/28/21 History cyanocobalamin (vitamin B-12) 1,000 mcg PO DAILY 04/23/20 02/28/21 History 1,000 mcg tablet fluticasone propionate 220 1 puff PO BID 04/23/20 02/28/21 History mcg/actuation HFA aerosol inhaler lancets 33 gauge #100 ea 04/23/20 02/28/21 History lisinopril 10 mg tablet 10 mg PO QAM 04/23/20 02/28/21 History magnesium oxide 400 mg (241.3 mg 800 mg PO QID 04/23/20 02/28/21 History magnesium) tablet memantine 10 mg tablet 10 mg PO BID 04/23/20 02/28/21 History metformin 850 mg tablet 850 mg PO BID 04/23/20 02/28/21 History multivitamin 1 tab PO BEDTIME 04/23/20 02/28/21 History albuterol sulfate 90 mcg/actuation 2 puff PO Q4-6H PRN 05/27/20 02/28/21 History aerosol inhaler ferrous gluconate 324 mg (38 mg 1 tab PO BID 12/28/20 02/28/21 History iron) tablet glipizide 5 mg tablet, extended 1 tab PO QAM 12/28/20 02/28/21 History release 24 hr magnesium chloride 71.5 mg 1 tab PO BID 12/28/20 02/28/21 History (magnesium chloride) tablet,delayed release (Slow-Mag) multivitamin with folic acid 400 1 tab PO BEDTIME 01/17/21 02/28/21 History mcg tablet (Daily-Riley (with folic acid)) Allergies Allergy/AdvReac Type Severity Reaction Status Date / Time No Known Allergies Allergy Mild NKA Verified 02/28/21 12:48 Exam Vital signs: Vital Signs Temp 97.9 F 12/28/20 13:42 Pulse 79 12/28/20 13:42 Resp 17 12/28/20 13:42 BP 127/59 L 12/28/20 13:42 Pulse Ox 96 12/28/20 13:42 Weight 72.1 kg BMI result Body Mass Index 43.0 - Constitutional Present: no acute distress, cooperative - Routine HEENT Exam Head: Present: normal inspection - Routine Neck Exam Present: full ROM. Absent: lymphadenopathy - Routine Respiratory Exam Present: CTAB - Routine Cardiovascular Exam Cardiovascular: Present: S1, S2 - Routine Abdominal Exam Present: soft - Routine Skin Exam Present: intact. Absent: cyanosis Data - Labs CBC & Chem 7: 02/28/21 13:17 12/28/20 14:16 Assessment and Plan Patient Active problem list reviewed?: Yes (1) Anemia Status: Chronic Assessment and plan: 1. This is a pleasant 70-year-old woman with chronic normocytic anemia dating back to 2016. Her hemoglobin has remained stable between 9-11 gram/dL over the years. She has chronic renal insufficiency secondary to diabetes mellitus. She had vitamin B12 deficiency, she is on oral supplementation and her levels are now adequate. She has no constitutional symptoms. She denies any symptoms suggestive of gastrointestinal blood losses. There is no evidence of hemolysis or medication induced anemia. Normal serum protein electrophoresis and immunofixation studies in 2019. Bone marrow aspiration/biopsy performed 01/14/2021 showed mildly hypercellular erythroid dominant marrow with maturing trilineage hematopoiesis. Morphological features of dysplasia not identified. Concurrent flow cytometry is negative for lymphoproliferative disorder or increased blasts, cytogenetics revealed normal female karyotype. CBC today is stable her hemoglobin is slightly below 10 gram/dL. Probable etiology is her chronic diabetes and renal insufficiency. She was advised to follow-up with her kidney specialist. follow-up in 3 month. - Time Spent With Patient Time Spent with Patient (in minutes): 15
[2021-02-28 12:45] VITALS: BP 155/68; PULSE 77; RESP 16; TEMP 36.1; O2SAT 98; BMI 42.3
[2021-02-28 13:38] LABS: MANUAL DIFF FLAG NO
[2021-02-28 13:50] LABS: Basophils Absolute Auto 0.1 X10*3/uL (0.0-0.2); Basophils Percent Auto 1.1 % (0-2); Eosinophils Absolute Auto 0.2 X10*3/uL (0.0-0.4); Eosinophils Percent Auto 2.7 % (0-4); Hematocrit 30.9 % (37.0-47.0); Hemoglobin 9.5 g/dl (12.0-16.0); Imm Gran Abs Auto 0.01 X10*3/uL (0.00-0.03); Imm Gran Pct Auto 0.2 % (0.0-0.4); Lymphocytes Absolute Auto 1.8 X10*3/uL (1.2-4.9); Lymphocytes Percent Auto 32.6 % (20-40); Mean Corpuscular HGB Conc 30.7 g/dl (31.0-35.0); Mean Corpuscular Hemoglobin 26.4 pg (27.0-33.0); Mean Corpuscular Volume 85.8 fL (80.0-98.0); Mean Platelet Volume 10.6 fL (9.4-12.3); Monocytes Absolute Auto 0.5 X10*3/uL (0.1-1.2); Monocytes Percent Auto 8.7 % (2-11); Neutrophils Absolute Auto 3.1 x10*3/uL (2.0-8.3); Neutrophils Percent Auto 54.7 % (45-73); Platelet Count 233 X10*3/uL (160-400); White Blood Count 5.6 X10*3/uL (4.8-10.8)
[2021-02-28 14:06] LABS: Blood Urea Nitrogen 17 mg/dL (9-16); Creatinine Clr Calc Pharmacy 25.7; Estimated Glomerular Filt Rate 37; Iron 42 mcg/dL (30-160); Percent Iron Saturation 15 % (15-50); Total Iron Binding Capacity 274 mcg/dL (228-428); Unsaturated Iron Binding 232 ug/dL
[2021-03-02 13:36] LABS: Haptoglobin 360 mg/dL (43-212)
--- NOTE | 2021-05-17 13:25 | P.PNHO_ITS ---
Medical Summary - Medical Summary Date of Service: 05/17/21 Chief complaint: Follow-up Medical Summary: Diagnosis: Chronic normocytic anemia Anemia dating back to 2016 with hemoglobin around 10 gram/dL. Chronic renal insufficiency secondary to diabetes mellitus. No hematinic deficiencies. Before 2014 her hemoglobin was above 12 gram/dL but since 2015 her hemoglobin has been 10 occasionally below that. This coincides with onset of her renal dysfunction. In 2011 her creatinine was 0.78, now it is 1.3 mg/dL. She has routine follow-up with GI has had previous colonoscopy Interval History Interval history: Patient is here for follow-up. She is accompanied by her daughter. She is doing well and has no complaints today. Review of Systems - Constitutional Denies anorexia, Denies fatigue, Denies malaise, Denies night sweats, Denies weakness PMF[facility] Medical History: Medical History (Last Reviewed 02/28/21 @ 12:48 by Carolina Rose) Abdominal hyperesthesia Anemia Asthma Chronic renal insufficiency COPD (chronic obstructive pulmonary disease) Depression Diabetic neuropathy DM2 (diabetes mellitus, type 2) GERD (gastroesophageal reflux disease) History of kidney stones HTN (hypertension) Hypomagnesemia Iron deficiency anemia secondary to inadequate dietary iron intake Liver mass Osteoarthritis Osteopenia PAD (peripheral artery disease) Scoliosis of thoracolumbar spine Thalamic pain syndrome Urinary incontinence Varicose vein of leg Family History: Family History (Last Reviewed 02/28/21 @ 12:48 by Carolina Rose) Daughter Diabetes Brother Heart problem Mother Heart problem Father Asthma Surgical History: Surgical History (Last Reviewed 02/28/21 @ 12:48 by Carolina Rose) History of angioplasty of peripheral vessel History of cholecystectomy History of laparoscopic appendectomy Hx of bilateral cataract extraction Hx of section Hx of colonoscopy Social History: Social History (Last Updated 02/28/21 @ 12:48 by Carolina Rose) Living Situation History: Household Members: Children Alcohol History Details: 1. How often do you have a drink containing alcohol?: a. Never Tobacco History: Patient Tobacco Use Status: Never used Tobacco Substance Use History: Use of substances other than those prescribed or required for medical reasons : No Occupation Assessmet: Current occupational status: disabled Oncology Screenings - ECOG Performance Status ECOG Performance Status: 1 Home Medications and Allergies Home Medications Medication Instructions Recorded Confirmed Type aspirin 81 mg tablet,delayed 81 mg PO QAM 04/23/20 05/17/21 History release atorvastatin 40 mg tablet 40 mg PO BEDTIME 04/23/20 05/17/21 History blood sugar diagnostic #10 ea 04/23/20 02/28/21 History carvedilol 12.5 mg tablet 18.75 mg PO BID 04/23/20 05/17/21 History cyanocobalamin (vitamin B-12) 1,000 mcg PO DAILY 04/23/20 05/17/21 History 1,000 mcg tablet fluticasone propionate 220 1 puff PO BID 04/23/20 05/17/21 History mcg/actuation HFA aerosol inhaler lancets 33 gauge #100 ea 04/23/20 02/28/21 History lisinopril 10 mg tablet 10 mg PO QAM 04/23/20 05/17/21 History magnesium oxide 400 mg (241.3 mg 800 mg PO QID 04/23/20 05/17/21 History magnesium) tablet memantine 10 mg tablet 10 mg PO BID 04/23/20 05/17/21 History metformin 850 mg tablet 850 mg PO BID 04/23/20 05/17/21 History multivitamin 1 tab PO BEDTIME 04/23/20 05/17/21 History albuterol sulfate 90 mcg/actuation 2 puff PO Q4-6H PRN 05/27/20 05/17/21 History aerosol inhaler ferrous gluconate 324 mg (38 mg 1 tab PO BID 12/28/20 05/17/21 History iron) tablet glipizide 5 mg tablet, extended 1 tab PO QAM 12/28/20 05/17/21 History release 24 hr magnesium chloride 71.5 mg 1 tab PO BID 12/28/20 05/17/21 History (magnesium chloride) tablet,delayed release (Slow-Mag) multivitamin with folic acid 400 1 tab PO BEDTIME 01/17/21 05/17/21 History mcg tablet (Daily-Riley (with folic acid)) Allergies Allergy/AdvReac Type Severity Reaction Status Date / Time No Known Allergies Allergy Mild NKA Verified 02/28/21 12:48 Exam Vital signs: Vital Signs Temp 97.0 F 02/28/21 12:45 Pulse 77 02/28/21 12:45 Resp 16 02/28/21 12:45 BP 155/68 H 02/28/21 12:45 Pulse Ox 98 02/28/21 12:45 Weight 71 kg BMI result Body Mass Index 42.3 - Constitutional Present: no acute distress, cooperative - Routine HEENT Exam Head: Present: normal inspection - Routine Neck Exam Present: full ROM. Absent: lymphadenopathy - Routine Respiratory Exam Present: CTAB - Routine Cardiovascular Exam Cardiovascular: Present: S1, S2 - Routine Abdominal Exam Present: soft - Routine Skin Exam Present: intact. Absent: cyanosis Data - Labs CBC & Chem 7: 05/17/21 13:44 02/28/21 13:17 Assessment and Plan Patient Active problem list reviewed?: Yes (1) Anemia Status: Chronic Assessment and plan: 1. This is a pleasant 70-year-old woman with chronic normocytic anemia dating back to 2016. She has chronic renal insufficiency secondary to diabetes mellitus. She had vitamin B12 deficiency, she is on oral supplementation and her levels are now adequate. Bone marrow aspiration/biopsy performed 01/14/2021 showed mildly hypercellular erythroid dominant marrow with maturing trilineage hematopoiesis. Morphological features of dysplasia not identified. Concurrent flow cytometry is negative for lymphoproliferative disorder or increased blasts, cytogenetics revealed normal female karyotype. CBC today is stable her hemoglobin is slightly below 10 gram/dL. Probable etiology is her chronic diabetes and renal insufficiency. She was advised to follow-up with her kidney specialist. follow-up in 6 month. - Time Spent With Patient Time Spent with Patient (in minutes): 15
[2021-05-17 13:29] VITALS: BP 135/64; PULSE 74; TEMP 36.6; O2SAT 96; BMI 42.7
[2021-05-17 14:00] LABS: MANUAL DIFF FLAG NO
[2021-05-17 14:12] LABS: Basophils Percent Auto 0.6 % (0-2); Eosinophils Absolute Auto 0.1 X10*3/uL (0.0-0.4); Eosinophils Percent Auto 1.6 % (0-4); Hematocrit 31.8 % (37.0-47.0); Hemoglobin 9.7 g/dl (12.0-16.0); Imm Gran Abs Auto 0.02 X10*3/uL (0.00-0.03); Imm Gran Pct Auto 0.4 % (0.0-0.4); Lymphocytes Absolute Auto 1.8 X10*3/uL (1.2-4.9); Lymphocytes Percent Auto 34.2 % (20-40); Mean Corpuscular HGB Conc 30.5 g/dl (31.0-35.0); Mean Corpuscular Hemoglobin 26.5 pg (27.0-33.0); Mean Corpuscular Volume 86.9 fL (80.0-98.0); Mean Platelet Volume 10.7 fL (9.4-12.3); Monocytes Absolute Auto 0.4 X10*3/uL (0.1-1.2); Monocytes Percent Auto 7.4 % (2-11); Neutrophils Absolute Auto 2.9 x10*3/uL (2.0-8.3); Neutrophils Percent Auto 55.8 % (45-73); Platelet Count 231 X10*3/uL (160-400); Red Blood Count 3.66 X10*6/uL (4.20-5.50); White Blood Count 5.1 X10*3/uL (4.8-10.8)
[2021-05-17 14:32] LABS: Iron 55 mcg/dL (30-160); Percent Iron Saturation 19 % (15-50); Total Iron Binding Capacity 297 mcg/dL (228-428); Unsaturated Iron Binding 242 ug/dL
--- NOTE | 2021-11-16 13:01 | P.PNHO-ONC_ITS ---
Medical Summary - Medical Summary Date of Service: 11/16/21 Chief complaint: Follow-up Medical Summary: Diagnosis: Chronic normocytic anemia Anemia dating back to 2016 with hemoglobin around 10 gram/dL. Chronic renal insufficiency secondary to diabetes mellitus. No hematinic deficiencies. Before 2014 her hemoglobin was above 12 gram/dL but since 2015 her hemoglobin has been 10 occasionally below that. This coincides with onset of her renal dysfunction. In 2011 her creatinine was 0.78, now it is 1.3 mg/dL. She has routine follow-up with GI has had previous colonoscopy Interval History Interval history: Patient is here for follow-up. She is doing well and has no complaints today. She denies fatigue, shortness of breath, loss of appetite or weight loss. She reports no interim medical issues. Review of Systems - Constitutional Reports as per HPI, Denies fatigue, Denies night sweats - Cardiovascular Reports no additional cardiovascular complaints - Respiratory Reports no additional respiratory complaints - Gastrointestinal Reports no additional gastrointestinal complaints - Neurologic Denies weakness [facility] Medical History: Medical History (Last Reviewed 11/16/21 @ 13:17 by Karen Holland CMA) Abdominal hyperesthesia Anemia Asthma Chronic renal insufficiency COPD (chronic obstructive pulmonary disease) Depression Diabetic neuropathy DM2 (diabetes mellitus, type 2) GERD (gastroesophageal reflux disease) History of kidney stones HTN (hypertension) Hypomagnesemia Iron deficiency anemia secondary to inadequate dietary iron intake Liver mass Osteoarthritis Osteopenia PAD (peripheral artery disease) Scoliosis of thoracolumbar spine Thalamic pain syndrome Urinary incontinence Varicose vein of leg Family History: Family History (Last Updated 11/16/21 @ 13:17 by Karen Holland CMA) Daughter Diabetes Brother Heart problem Mother Heart problem Father Asthma Other No family history of cancer Surgical History: Surgical History (Last Reviewed 11/16/21 @ 13:17 by Karen Holland CMA) History of angioplasty of peripheral vessel History of cholecystectomy History of laparoscopic appendectomy Hx of bilateral cataract extraction Hx of section Hx of colonoscopy Social History: Social History (Last Updated 11/16/21 @ 13:18 by Karen Holland [employer]) Living Situation History: Household Members: Children Housing: Apartment Are you a primary home health care physician to a significant other at home: No Do you presently have visiting nurse or other home services: No Alcohol History Details: 1. How often do you have a drink containing alcohol?: a. Never Tobacco History: Patient Tobacco Use Status: Never used Tobacco Substance Use History: Use of substances other than those prescribed or required for medical reasons : No Domestic Abuse History: Have you been hit, kicked, punched, or otherwise hurt by someone within the past year? If so, by whom?: No Homicidal Assessment: Do you have thoughts of harming others: None Do you have a plan to hurt others: No Plan Do you have the means to hurt others: No Nutrition Assessment: Recently lost weight without trying: No Eating poorly because of decreased appetite: No Occupation Assessmet: service: No Current occupational status: disabled Oncology Screenings - ECOG Performance Status ECOG Performance Status: 1 Home Medications and Allergies Home Medications Medication Instructions Recorded Confirmed Type aspirin 81 mg tablet,delayed 81 mg PO QAM 04/23/20 11/16/21 History release atorvastatin 40 mg tablet 40 mg PO BEDTIME 04/23/20 11/16/21 History blood sugar diagnostic #10 ea 04/23/20 11/16/21 History carvedilol 12.5 mg tablet 18.75 mg PO BID 04/23/20 11/16/21 History lancets 33 gauge #100 ea 04/23/20 11/16/21 History lisinopril 10 mg tablet 10 mg PO QAM 04/23/20 11/16/21 History memantine 10 mg tablet 10 mg PO BID 04/23/20 11/16/21 History metformin 850 mg tablet 850 mg PO BID 04/23/20 11/16/21 History multivitamin 1 tab PO BEDTIME 04/23/20 11/16/21 History albuterol sulfate 90 mcg/actuation 2 puff PO Q4-6H PRN dyspnea 05/27/20 11/16/21 History aerosol inhaler ferrous gluconate 324 mg (38 mg 1 tab PO BID 12/28/20 11/16/21 History iron) tablet glipizide 5 mg tablet, extended 1 tab PO QAM 12/28/20 11/16/21 History release 24 hr magnesium chloride 71.5 mg 1 tab PO BID 12/28/20 11/16/21 History (magnesium chloride) tablet,delayed release (Slow-Mag) multivitamin with folic acid 400 1 tab PO BEDTIME 01/17/21 11/16/21 History mcg tablet (Daily-Riley (with folic acid)) acetaminophen 500 mg tablet 500 mg PO DAILY PRN Pain 08/23/21 11/16/21 History empagliflozin 10 mg tablet 10 mg PO DAILY 08/23/21 11/16/21 History (Jardiance) Allergies Allergy/AdvReac Type Severity Reaction Status Date / Time No Known Allergies Allergy Mild NKA Verified 11/16/21 13:18 Exam Vital signs: Vital Signs Temp 97.8 F 05/17/21 13:29 Pulse 74 05/17/21 13:29 Resp 16 02/28/21 12:45 BP 135/64 05/17/21 13:29 Pulse Ox 96 05/17/21 13:29 O2 Del Method 05/17/21 13:29 Weight 71.8 kg BMI result Body Mass Index 42.7 - Constitutional Present: no acute distress, cooperative - Routine HEENT Exam Head: Present: normal inspection - Routine Neck Exam Present: full ROM. Absent: lymphadenopathy - Routine Respiratory Exam Present: CTAB - Routine Cardiovascular Exam Cardiovascular: Present: S1, S2 - Routine Abdominal Exam Present: soft - Routine Skin Exam Present: intact. Absent: cyanosis Data - Labs CBC & Chem 7: 11/16/21 13:18 11/16/21 13:18 Assessment and Plan Patient Active problem list reviewed?: Yes (1) Anemia Status: Chronic Assessment and plan: 1. This is a pleasant 70-year-old woman with chronic normocytic anemia dating back to 2016. She has chronic renal insufficiency secondary to diabetes mellitus. She had vitamin B12 deficiency, she is on oral supplementation and her levels are now adequate. Bone marrow aspiration/biopsy performed 01/14/2021 showed mildly hypercellular erythroid dominant marrow with maturing trilineage hematopoiesis. Morphological features of dysplasia not identified. Concurrent flow cytometry is negative for lymphoproliferative disorder or increased blasts, cytogenetics revealed normal female karyotype. CBC today is stable. Probable etiology is her chronic diabetes and renal insufficiency. follow-up in 6 month. - Time Spent With Patient Time Spent with Patient (in minutes): 15
[2021-11-16 13:06] VITALS: BP 147/63; PULSE 74; RESP 12; TEMP 36.2; O2SAT 96; BMI 43.1
[2021-11-16 13:22] LABS: MANUAL DIFF FLAG NO
[2021-11-16 13:28] LABS: Basophils Absolute Auto 0.1 X10*3/uL (0.0-0.2); Basophils Percent Auto 1.1 % (0-2); Eosinophils Absolute Auto 0.1 X10*3/uL (0.0-0.4); Eosinophils Percent Auto 2.6 % (0-4); Hematocrit 31.8 % (37.0-47.0); Imm Gran Abs Auto 0.01 X10*3/uL (0.00-0.03); Imm Gran Pct Auto 0.2 % (0.0-0.4); Lymphocytes Absolute Auto 2.1 X10*3/uL (1.2-4.9); Lymphocytes Percent Auto 38.7 % (20-40); Mean Corpuscular HGB Conc 31.4 g/dl (31.0-35.0); Mean Corpuscular Hemoglobin 26.7 pg (27.0-33.0); Mean Corpuscular Volume 84.8 fL (80.0-98.0); Mean Platelet Volume 10.4 fL (9.4-12.3); Monocytes Absolute Auto 0.4 X10*3/uL (0.1-1.2); Monocytes Percent Auto 6.6 % (2-11); Neutrophils Absolute Auto 2.8 x10*3/uL (2.0-8.3); Neutrophils Percent Auto 50.8 % (45-73); Platelet Count 208 X10*3/uL (160-400); Red Blood Count 3.75 X10*6/uL (4.20-5.50); Red Cell Distribution Width 14.9 % (11.0-16.0); White Blood Count 5.5 X10*3/uL (4.8-10.8)
--- NOTE | 2021-11-16 13:46 | MHC.HEMONCMA ---
Patient seen today for followup anemia, VSS< labs, 4 month followup
[2021-11-16 13:48] LABS: Alanine Aminotransferase 11 U/L (0-31); Albumin Level 4.2 g/dL (3.5-5.0); Alkaline Phosphatase 83 U/L (39-117); Anion Gap 15 (12-20); Aspartate Amino Transferase 12 U/L (5-31); Bilirubin Total 0.3 mg/dL (0.0-1.0); Blood Urea Nitrogen 30 mg/dL (9-16); Calcium 9.8 mg/dL (8.4-10.2); Carbon Dioxide 26 mmol/L (22-29); Chloride 102 mmol/L (96-108); Creatinine Clr Calc Pharmacy 25.1; Estimated Glomerular Filt Rate 36; Glucose Random 152 mg/dL (60-115); Potassium 5.1 mmol/L (3.3-5.1); Sodium 138 mmol/L (135-145)
== END | disposition home or self-care (01) ==
LOC: HO.ONC 10-15 13:10
PROVIDERS: PCP Family Medicine; Referring Provider Family Medicine; Visit Provider Internal Medicine
DX: D64.9 Anemia, unspecified (principal); E53.8 Deficiency of other specified B group vitamins; E11.22 Type 2 diabetes mellitus with diabetic chronic kidney disease; N18.9 Chronic kidney disease, unspecified; Z79.899 Other long term (current) drug therapy
CPT/HCPCS: 36415; 80053; 82565; 82607; 82784; 83010; 83540; 84520; 85025; 85027; 85045; 85097; 85652; 86334; 88184; 88185; 88237; 88264; 88305; 88311; 88313; 99213; 99214